=== PATIENT | male | born 1965 ===

== ENCOUNTER 2018-12-20 11:17 | Inpatient (IN) | payer BC ==
--- NOTE | 2018-12-20 11:22 | ED PDOC ---
Arrival/HPI - General Time Seen by Provider: 12/20/18 11:18 Historian: Patient, EMS - History of Present Illness Narrative History of Present Illness (Text): 12/20/18 11:23 53 year old M with pmh of hypertension and AFIB (on Eloquist) presents via EMS complaining of CVA like symptoms prior to arrival. 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 Left facial droop, left arm and left leg paralysis noted. Patient reports no history of CVA. Patient is awake,alert, and talking appropriately with obvious slurred speech. Patient wants called and told about presence in Emergency room. EMS mentions that physician on cruise administered 4mg sublingual nitro and 40mg Lasinopril. Patient currently does not have any other physical complaints, denies headache, denies chest pain, no neck pain. 12/22/18 11:40 Time/Duration: Prior to Arrival Symptom Onset: Sudden Symptom Course: Unchanged Activities at Onset: Light Past Medical History - Provider Review Nursing Documentation Reviewed: Yes Family/Social History - Physician Review Nursing Documentation Reviewed: Yes Family/Social History: Unknown Family HX Allergies/Home Meds Allergies/Adverse Reactions: Allergies No Known Allergies Allergy (Verified 12/20/18 11:26) Home Medications: Home Meds Medication Instructions Recorded Confirmed Carvedilol [Coreg] 25 mg PO DAILY 12/20/18 12/20/18 Insulin Glargine,Hum.rec.anlog 25 units SC CONT 12/20/18 12/20/18 [Lantus Solostar] hydrALAZINE [Apresoline] 10 mg PO BID 12/20/18 12/20/18 Review of Systems - Physician Review All systems were reviewed & negative as marked: Yes - Review of Systems Constitutional: absent: Fevers ENT: absent: Sore Throat, Rhinorrhea, Epistaxis Respiratory: absent: SOB, Cough Gastrointestinal: absent: Abdominal Pain, Diarrhea, Nausea, Vomiting Neurological: Facial Droop (left). absent: Headache, Dizziness Physical Exam - Physical Exam Narrative Physical Exam (Text): 12/20/18 11:19 Gen: VS reviewed, alert, well developed, well nourished, nontoxic, mild distress. ENT: normal pharynx. Eye: EOMI, PERRL. Neck: no JVD, supple, no adenopathy. CV: regular rate, regular rhythm, no rubs, no murmur, no gallops, S1, S2, pulses equal and strong. Pulm: no distress, clear to auscultation, no wheeze, no rhonchi, breath sounds equal, no rales. Abd: soft, nontender, no guarding, no rebound, no rigidity, normal bowel sounds. Ext: Paralysis of Left arm and left leg Skin: good color, no rash, no cyanosis. Psych: responds appropriately to questions, normal affect. Neuro: oriented x 3, Left sided facial droop Medical Decision Making ED Course and Treatment: 12/20/18 11:20 Code stroke called Impression: 53 year old M presents via EMS complaining of CVA like symptoms prior to arrival Plan: -- Apresoline -- CT Head w/o contrast -- Labs -- EKG -- Stroke team consult -- Reassess and disposition Prior Visits: Notes and results from previous visits were reviewed. Progress Notes: 12/20/18 11:37 Awaiting call back from neurosurgery 12/20/18 11:[address] Barajas, neurosurgery, states patient is not acute candidate for neurosurgical intervention 12/20/18 11:[address] Thomas who accepts admission, and consults to Dr. Fowler (Neuro), Dr. Garner(hematology), Dr. Edwards (cardio) 12/20/18 11:57 Dr. Tubbs, neurology, presents to the emergency department for bedside evaluation patient was seen for acute left sided hemiparesis, found to have a intrcerebral bleeding, taking eliquis for chronic afib, blood pressure was severealy elevated and was given antihypertensives, anticogulation was reversed with kcentra which was confirmed by pharmacy that this was the only agent available for this acute life threatening bleed. patient was admitted to the icu. - Critical Care Critical Care Minutes: 60 minutes - RAD Interpretation Narrative RAD Interpretations (Text): 12/20/18 11:30 Chest X-ray -- No active pulmonary disease CT HEAD WITHOUT CONTRAST 1. 3.4 x 2.4 cm acute hematoma with mild surrounding vasogenic edema in the right basal ganglia. No evidence for mass effect, midline shift or herniation. The location of the acute hematoma is most compatible with a hypertensive hemorrhage. 2. 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 - EKG Interpretation EKG Interpretation (Text): 12/20/18 12:47 ekg my read: atrial fibrillation at 78 bpm, rbbb, lvh Interpreted by ED Physician: Yes - Scribe Statement The provider has reviewed the documentation as recorded by the Elizabethibkaden Wilson All medical record entries made by the Scribe were at my direction and personally dictated by me. I have reviewed the chart and agree that the record accurately reflects my personal performance of the history, physical exam, medical decision making, and the department course for this patient. I have also personally directed, reviewed, and agree with the discharge instructions and disposition. Disposition/Present on Arrival - Present on Arrival Any Indicators Present on Arrival: No - Disposition Have Diagnosis and Disposition been Completed?: Yes Diagnosis: Intracerebral bleed Disposition: HOSPITALIZED Disposition Time: 11:43 Patient Plan: Admission, ICU Patient Problems: Current Active Problems Problem Status Onset Intracerebral bleed Acute Condition: CRITICAL
[2018-12-20] MEDS ORDERED: HUM PROTHROMBIN CPLX IV ONE (11:33)
[2018-12-20] MEDS ORDERED: [UNRECOGNIZED DRUG - OTHER] IV ONE (11:33)
[2018-12-20] MEDS ORDERED: PREMIXED IV ONE (11:33)
--- NOTE | 2018-12-20 11:35 | CT ---
Date of service: 12/20/2018 PROCEDURE: CT HEAD WITHOUT CONTRAST. HISTORY: L arm weakness COMPARISON: None TECHNIQUE: Axial computed tomography images were obtained through the head/brain without intravenous contrast. Radiation dose: Total exam DLP = 956.37 mGy-cm. This CT exam was performed using one or more of the following dose reduction techniques: Automated exposure control, adjustment of the mA and/or kV according to patient size, and/or use of iterative reconstruction technique. FINDINGS: HEMORRHAGE: There is a 3.4 x 2.0 cm acute hematoma in the right basal ganglia. There is mild surrounding vasogenic edema without evidence for mass effect, midline shift or herniation. BRAIN: There is cystic encephalomalacia in the right posterior superior basal ganglia. There are mild chronic microangiopathic changes. There is no mass, mass effect or abnormal extra-axial fluid collection. The midline sagittal structures are normal. VENTRICLES: The ventricles are normal in size, shape and configuration. CALVARIUM: There is no calvarial fracture or extracranial soft tissue swelling. PARANASAL SINUSES: Predominantly clear. MASTOID AIR CELLS: Predominantly clear. OTHER FINDINGS: None. IMPRESSION: 1. 3.4 x 2.4 cm acute hematoma with mild surrounding vasogenic edema in the right basal ganglia. No evidence for mass effect, midline shift or herniation. The location of the acute hematoma is most compatible with a hypertensive hemorrhage. 2. 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 Critical findings were discussed with Dr. Barr in the ER on 12/20/2018 at 11:30 a.m.
[2018-12-20] MEDS: Sodium Chloride 0.9% 1,000 ML IV SCH (11:39)
[2018-12-20 11:48] LABS: ALB/GLOB RATIO 0.9 (1.1-1.8); ALBUMIN 3.2 g/dL (3.0-4.8); CALCIUM 8.7 mg/dL (8.4-10.5)
--- NOTE | 2018-12-20 11:52 | RAD ---
Date of service: 12/20/2018 HISTORY: Code Stroke COMPARISON: No prior. FINDINGS: LUNGS: The lungs are well inflated and clear. PLEURA: No pleural effusions or pneumothorax. CARDIOVASCULAR: There is severe cardiomegaly. No aortic atherosclerotic calcifications present. OSSEOUS STRUCTURES: Within normal limits for the patient's age. VISUALIZED UPPER ABDOMEN: Normal. OTHER FINDINGS: None. IMPRESSION: No active pulmonary disease.
[2018-12-20 11:58] LABS: TROPONIN I 0.03 ng/mL
[2018-12-20 12:01] LABS: BASO # 0.02 K/mm3 (0.0-2.0); BASO % 0.2 % (0.0-3.0); EOS # 0.5 (0.0-0.7); EOS % 5.9 % (1.5-5.0); HEMOGLOBIN 11.2 g/dL (14.0-18.0); LYMPH # 1.2 (1.2-3.4); LYMPH % 14.6 % (22.0-35.0); MEAN CELL VOLUME 85.5 fl (80.0-105.0); MEAN CORPUSCULAR HEMOGLOBIN 27.5 pg (25.0-35.0); MEAN CORPUSCULAR HGB CONC 32.1 g/dl (31.0-37.0); MEAN PLATELET VOLUME 10.8 fl (7.0-11.0); MONO # 0.5 (0.1-0.6); MONO % 5.6 % (1.0-6.0); RBC 4.08 10^6/uL (3.5-6.1); RED CELL DISTRIBUTION WIDTH 15.7 % (11.5-14.5); WHITE BLOOD COUNT 8.1 10^3/uL (4.5-11.0)
[2018-12-20 12:06] VITALS: BMI 35.2
[2018-12-20 12:06] LABS: INR 1.12; PROTHROMBIN TIME 12.6 SECONDS (9.4-12.5)
--- NOTE | 2018-12-20 12:30 | CP.PCM.PN ---
Subjective - Date & Time of Evaluation Date of Evaluation: 12/20/18 Time of Evaluation: 12:28 - Subjective Subjective: Pt has right basal ganglion hemorrhage with minimal mass effect Pt on Elequest This is not surgical case, as no surgery is indicated for this problem, Suggest reversal of Elequest if possible, and further management as per neurology Objective - Vital Signs/Intake and Output Vital Signs (last 24 hours): Temp Pulse Resp BP Pulse Ox 97.6 F 89 17 182/91 H 99 12/20/18 12:16 12/20/18 12:16 12/20/18 12:16 12/20/18 12:16 12/20/18 12:16 - Medications Medications: Current Medications Hydralazine HCl (Apresoline) 10 mg IVP STAT KHAI Last Admin: 12/20/18 11:53 Dose: 10 mg Hydralazine HCl (Apresoline) 10 mg IVP STAT KHAI Last Admin: 12/20/18 12:16 Dose: 10 mg Hydralazine HCl (Apresoline) 10 mg IVP STAT KHAI Sodium Chloride (Sodium Chloride 0.9%) 1,000 mls @ 100 mls/hr IV .Q10H KHAI Last Admin: 12/20/18 11:39 Dose: 100 mls/hr Nicardipine HCl (Cardene Iv Premix) 20 mg in 200 mls @ 50 mls/hr IV .Q4H PRN; Protocol PRN Reason: TITRATE PER MD ORDER - Labs Labs: 12/20/18 11:00 12/20/18 11:00 PT 12.6 SECONDS (9.4-12.5) H 12/20/18 11:00 INR 1.12 12/20/18 11:00 APTT 34.0 Seconds (26.9-38.3) 12/20/18 11:00
[2018-12-20] MEDS: Nicardipine 20 MG/200 ML 20 MG/200 ML BAG IV PRN ×3 (12:33→20:28)
[2018-12-20] MEDS: Insulin Reg-MEDIUM-Coverage SC SCH ×3 (13:33→20:31)
--- NOTE | 2018-12-20 14:05 | RAD ---
PROCEDURE: Left Hip X-ray Radiographs. HISTORY: Fall, left hip pain COMPARISON: None. TECHNIQUE: 2 views obtained. FINDINGS: BONES: The pelvic ring is intact. There is no acute displaced fracture bone destruction. Bone alignment is normal. JOINTS: Normal. SOFT TISSUES: Normal. OTHER FINDINGS: None. IMPRESSION: No acute displaced fracture or dislocation. Please note occult fractures cannot be excluded on plain radiographs. If there is a persistent clinical concern, an MRI of the hip may be performed for further evaluation.
--- NOTE | 2018-12-20 19:50 | CP.PCM.CON ---
History of Present Illness - History of Present Illness History of Present Illness: 3 year old man with pmh of hypertension and AFIB (on Eloquis) presents via EMS complaining of CVA like symptoms prior to arrival. 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 Left facial droop, left arm and left leg paralysis was noted, along with slurring of speech. A CAT scan done, revealed a 3.4 cm hematoma in the right basal ganglia, along with some edema. The patient's last dose of Eliquis was last night, in the ER, he was transfused Prothrombin complex concentrates( andaxenet not immediately available) As per the family, the patient fell down, because of the new onset weakness, on his left side as per the patient's family. He had an episode of vomiting in the ER. The patient is awake, communicating, still with weakness of his left lower extremity, c/o slight headache. Patient reports no history of CVA. Patient is awake and talking. Patient wants called and told about presence in Emergency room. EMS mentions that physician on cruise administered 4mg sublingual nitro and 40mg Lacenopro. Patient currently does not have any further complaints. The patient gives a history of ?PVD, toe amputation with history of gangrene. The patient does not remember taking any Aspirin, takes it on and off as per patient Past Patient History - Past Social History Smoking Status: Never Smoked - CARDIAC Hx Cardia Arrhythmia: Yes Hx Hypertension: Yes - ENDOCRINE/METABOLIC Hx Diabetes Mellitus Type 2: Yes - MUSCULOSKELETAL/RHEUMATOLOGICAL Hx Falls: No - PSYCHIATRIC Hx Substance Use: No Meds Allergies/Adverse Reactions: Allergies Allergy/AdvReac Type Severity Reaction Status Date / Time No Known Allergies Allergy Verified 12/20/18 11:26 - Medications Medications: Current Medications Furosemide (Lasix) 40 mg IVP DAILY [facility] Last Admin: 12/20/18 18:53 Dose: 40 mg Hydralazine HCl (Apresoline) 10 mg IVP STAT [facility] Last Admin: 12/20/18 11:53 Dose: 10 mg Hydralazine HCl (Apresoline) 10 mg IVP STAT [facility] Last Admin: 12/20/18 12:30 Dose: 10 mg Hydralazine HCl (Apresoline) 10 mg IVP STAT [facility] Last Admin: 12/20/18 12:40 Dose: 10 mg Sodium Chloride (Sodium Chloride 0.9%) 1,000 mls @ 100 mls/hr IV .Q10H KHAI Last Admin: 12/20/18 11:39 Dose: 100 mls/hr Nicardipine HCl (Cardene Iv Premix) 20 mg in 200 mls @ 50 mls/hr IV .Q4H PRN; Protocol PRN Reason: TITRATE PER MD ORDER Last Admin: 12/20/18 16:40 Dose: 5 mg/hr, 50 mls/hr Acetaminophen (Ofirmev) 1,000 mg in 100 mls @ 400 mls/hr IVPB Q6H PRN PRN Reason: fever >99 Stop: 12/22/18 12:35 Last Admin: 12/20/18 13:22 Dose: 400 mls/hr Insulin Human Regular (Humulin R Med) 0 units SC Q4H KHAI; Protocol Last Admin: 12/20/18 16:32 Dose: Not Given Results - Vital Signs Recent Vital Signs: Last Vital Signs Temp 98 F 12/20/18 14:45 Pulse 73 12/20/18 18:10 Resp 16 12/20/18 18:10 BP 153/88 H 12/20/18 18:53 Pulse Ox 99 12/20/18 18:10 - Labs Result Diagrams: 12/20/18 11:00 12/20/18 11:00 Labs: Laboratory Results - last 24 hr 12/20/18 12/20/18 12/20/18 11:00 11:00 11:00 WBC 8.1 RBC 4.08 Hgb 11.2 L Hct 34.9 L MCV 85.5 MCH 27.5 MCHC 32.1 RDW 15.7 H Plt Count 291 MPV 10.8 Neut % (Auto) 73.7 H Lymph % (Auto) 14.6 L Lynn % (Auto) 5.6 Eos % (Auto) 5.9 H Baso % (Auto) 0.2 Lymph # (Auto) 1.2 Lynn # (Auto) 0.5 Eos # (Auto) 0.5 Baso # (Auto) 0.02 Absolute Neuts (auto) 5.95 PT 12.6 H INR 1.12 APTT 34.0 Sodium 141 Potassium 5.2 H Chloride 113 H Carbon Dioxide 21 Anion Gap 12 BUN 48 H Creatinine 3.1 H Est GFR ( Amer) 26 Est GFR (Non-Af Amer) 21 POC Glucose (mg/dL) Random Glucose 141 H Hemoglobin A1c Calcium 8.7 Total Bilirubin 0.3 AST 23 ALT 16 Alkaline Phosphatase 103 Troponin I 0.03 Total Protein 6.6 Albumin 3.2 Globulin 3.4 Albumin/Globulin Ratio 0.9 L Triglycerides 86 Cholesterol 161 LDL Cholesterol Direct 110 HDL Cholesterol 35 Blood Type Blood Type Confirm Antibody Screen BBK History Checked 12/20/18 12/20/18 12/20/18 11:00 11:30 11:50 WBC RBC Hgb Hct MCV MCH MCHC RDW Plt Count MPV Neut % (Auto) Lymph % (Auto) Lynn % (Auto) Eos % (Auto) Baso % (Auto) Lymph # (Auto) Lynn # (Auto) Eos # (Auto) Baso # (Auto) Absolute Neuts (auto) PT INR APTT Sodium Potassium Chloride Carbon Dioxide Anion Gap BUN Creatinine Est GFR ( Amer) Est GFR (Non-Af Amer) POC Glucose (mg/dL) Random Glucose Hemoglobin A1c 6.3 Calcium Total Bilirubin AST ALT Alkaline Phosphatase Troponin I Total Protein Albumin Globulin Albumin/Globulin Ratio Triglycerides Cholesterol LDL Cholesterol Direct HDL Cholesterol Blood Type O POSITIVE Blood Type Confirm O POSITIVE Antibody Screen Negative BBK History Checked No verified bt 12/20/18 16:17 WBC RBC Hgb Hct MCV MCH MCHC RDW Plt Count MPV Neut % (Auto) Lymph % (Auto) Lynn % (Auto) Eos % (Auto) Baso % (Auto) Lymph # (Auto) Lynn # (Auto) Eos # (Auto) Baso # (Auto) Absolute Neuts (auto) PT INR APTT Sodium Potassium Chloride Carbon Dioxide Anion Gap BUN Creatinine Est GFR ( Amer) Est GFR (Non-Af Amer) POC Glucose (mg/dL) 187 H Random Glucose Hemoglobin A1c Calcium Total Bilirubin AST ALT Alkaline Phosphatase Troponin I Total Protein Albumin Globulin Albumin/Globulin Ratio Triglycerides Cholesterol LDL Cholesterol Direct HDL Cholesterol Blood Type Blood Type Confirm Antibody Screen BBK History Checked Assessment & Plan - Assessment and Plan (Free Text) Assessment: 53 yo man with new onset left sided weakness, secondary to basal ganglia hematoma, while on PO Eliquis, last dose yesterday evening. The patient is currently s/p PCCs, with improvement of his speech and upper extremity weakness. Plan- Will check coags and fibrinogen level in AM. ? repeat CAT scan in AM, await neuro input. Will repeat CBC as well, with anemia work up.
--- NOTE | 2018-12-20 23:01 | CON ---
DATE: 12/20/2018 HISTORY OF PRESENT ILLNESS: The patient is a 53-year-old gentleman with history of hypertension and atrial fibrillation, on Eliquis, who presented to [facility] today with sudden onset of left upper and lower extremity weakness. 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 He also had left facial droop. No prior history of CVA reported. The patient is awake, alert, talks in full sentences, oriented x3, protecting airways. No problems swallowing or coughing. No nausea, no vomiting, no diarrhea, no constipation. PAST MEDICAL HISTORY: Hypertension and atrial fibrillation, on Eliquis. Diabetes mellitus. FAMILY HISTORY: Noncontributory. ALLERGIES: NKDA. MEDICATIONS: Coreg, insulin, and hydralazine. SOCIAL HISTORY: No alcohol or illicit drug abuse. No tobacco smoking. REVIEW OF SYSTEMS: Review of 12-organ systems other than mentioned in history of present illness is negative. PHYSICAL EXAMINATION: VITAL SIGNS: Blood pressure 162/91 (Cardene drip is started), temperature 97.6, heart rate 89, respiratory rate 17, oxygen saturation 99% on room air. ENT: Head and neck atraumatic. There is flattening of the left nasolabial fold. LUNGS: Clear to auscultation bilaterally. HEART: Regular rate and rhythm. S1 and S2 normal. ABDOMEN: Soft, nontender, nondistended. MUSCULOSKELETAL: No C/C/E. NEUROLOGIC: There is a significant weakness in the left upper and lower extremities compared with the right upper and lower extremities (2/5). The patient has flattening of the left nasolabial fold; however, able to shrug his shoulders, raising his eyebrows, and sticking out his tongue without asymmetry or difficulty. SKIN: Moist. PSYCHIATRIC: The patient is alert, awake, and oriented x3, protecting airways. Good cough and gag reflex. LABORATORY DATA: WBC 8.1, hemoglobin 11.2, platelet count 291. Sodium 141, potassium 5.2, chloride 113, carbon dioxide 21, BUN 48, creatinine 3.1. AST 23, ALT 16, total bilirubin 0.3. INR 1.12, PTT is 34, PT 12.6. The patient received several doses of hydralazine and will be started on Cardene drip shortly. aPCC is on its way as well to reverse effect of Eliquis. Head CT showed a 3.4 x 2.4 cm acute hematoma with mild surrounding vasogenic edema in the right basal ganglia. No evidence for mass affect, midline shift, or herniation. The location of the acute hematoma is most compatible with hypertensive hemorrhage. Cystic encephalomalacia in the right posterior superior cerebellum, sequela from old superior cerebellar artery territory insult. Chest x-ray showed no active pulmonary disease. ASSESSMENT AND PLAN: This is a 53-year-old gentleman who presented with acute intracranial hemorrhage with subsequent left upper and lower extremity neurological deficit. The patient is protecting his airways, alert, awake and oriented, able to swallow and able to cough. Dr. Barajas from Neurosurgical Service was contacted - there is no need for any neurosurgical intervention. Neurologist, Dr. Aubrey Fowler was consulted as well. At present time, we will proceed with ICU admission with monitoring airway breathing and circulation. The patient will be started on Cardene drip to maintain blood pressure between 140 and 160. aPCC will be given to correct coagulopathy related to Eliquis. We will maintain euvolemia, euglycemia, normothermia, and oxygen saturation more than 90%. Accu-Chek will be every 4 hours. The patient will be on insulin sliding scale medium protocol. N.p.o., oral hygiene. Swallow evaluation. Mechanical deep venous thrombosis prophylaxis. Gastrointestinal prophylaxis. ccm time 40 min Daron Heard MD GUERLINE
[2018-12-21] MEDS: Nicardipine 20 MG/200 ML 20 MG/200 ML BAG IV PRN (00:30)
[2018-12-21] MEDS: Insulin Reg-MEDIUM-Coverage SC SCH ×6 (00:45→21:38)
--- NOTE | 2018-12-21 01:32 | HP ---
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 He started to have CVA symptoms with left facial droop, left arm and left leg paralysis. No history of CVA in the past. We gave him 4 mg of sublingual nitroglycerin and 40 mg of lisinopril in the [place]. He is a 53-year-old man with hypertension, atrial fibrillation on Eliquis, presents with 3-day-old CVA symptoms. ALLERGIES: NO KNOWN DRUG ALLERGIES. MEDICATIONS: On Coreg, insulin, and Apresoline. PAST MEDICAL HISTORY: He has got hypertension and diabetes history. He has CVA symptoms. SOCIAL HISTORY: I cannot get social history from him now in his mental capacity in the ER at [facility], he is in and out of it mentally. REVIEW OF SYSTEMS: Difficult to get it. No fevers, no sore throat, no bloody nose. No shortness of breath or cough. No abdominal pain, nausea, vomiting, constipation, or diarrhea. No chest pain. There is a left facial droop. There is left arm weakness, left hand weakness, left-sided weakness. He is kind of writhing in the bed. PHYSICAL EXAMINATION GENERAL: He is well-developed, well-nourished. He is definitely under stress in the gurney in the hospital [facility], very upset, uncomfortable, difficult to talk. VITAL SIGNS: Temperature of 98, pulse of 85, 137/86 blood pressure, 19 respiratory rate and 98% O2 sat on room air. HEENT: No vision issues at this time that I could tell. Extraocular muscles intact. Throat is moist. NECK: No JVD in the neck, no adenopathy. HEART: Regular rate. Normal S1 and S2. LUNGS: Decreased breath sounds, but clear to auscultation bilaterally. No wheezes, no rhonchi or rales. ABDOMEN: Soft, nontender. Positive bowel sounds. No guarding, no rebound, no CVA tenderness. EXTREMITIES: He has got paralysis of the left arm and left leg, the left hand. He is definitely with a CVA like symptoms. DIAGNOSTICS: He had a CT scan of the head, which showed a 3.4 x 2.4 cm acute hematoma with mild surrounding vasogenic edema in the right basal ganglia. No evidence of mass effect at this time, or midline shift or herniation. The hematoma has been the most compatible with a hypertensive hemorrhage. He has cystic encephalomalacia in the right posterior superior cerebellum, a cerebellar artery territory insult. LABORATORY DATA: He has a 8.1 white count, 11.2 hemoglobin, 34.9 hematocrit with 291 platelets. A 1.12 INR. A 141 sodium, potassium of 5.2 with BUN of 48, creatinine of 3.1. GFR is 20, blood sugar is 141, calcium is 8.7, total bilirubin is 0.3, AST is 23, ALT is 16, alkaline phosphatase 103. Troponin I is 0.03, total protein is 6.6, albumin is 3.2, triglycerides are 86, cholesterol is 161, LDL is 110. ASSESSMENT AND PLAN: Neurosurgery to call back and say no surgery at this time. He is to go into the Intensive Care Unit. I discussed it with the maintenance person. He will be on Codeine IV, Apresoline, insulin coverage, IV fluids. He will be on IV fluids. He is definitely having an acute kidney injury. I will call on renal. He will have consults with Hematology, Oncology, Neurology, Neurosurgery, Cardiology and I will call in renal due to his elevated BUN and creatinine. Hopefully he will improve. Josue Clark is in critical condition in the Intensive Care Unit. Viktor Thomas DO
--- NOTE | 2018-12-21 03:56 | CP.PCM.PN ---
Subjective - Date & Time of Evaluation Date of Evaluation: 12/21/18 Time of Evaluation: 03:55 - Subjective Subjective: S:residential service technician had asked to cosign the order for BiPAP/CPAP. As per nurse, patient had requested CPAP because he is on 8 at home. He has no acute symptoms. Denies shortness of breath, chest pain. Pertinent medical record was reviewed. O:Vital signs stable. Obese person. Not in acute distress. Lungs: Normal breathing pattern. A:Obstructive sleep apnea. Obesity. P:CPAP as ordered. Objective - Vital Signs/Intake and Output Vital Signs (last 24 hours): Temp Pulse Resp BP Pulse Ox 98 F 68 20 142/82 98 12/20/18 14:45 12/20/18 21:20 12/20/18 21:20 12/20/18 21:00 12/20/18 21:20 Intake and Output: 12/20/18 12/21/18 18:59 06:59 Intake Total 650 450 Output Total 0 Balance 650 450 - Medications Medications: Current Medications Furosemide (Lasix) 40 mg IVP DAILY [facility] Last Admin: 12/20/18 18:53 Dose: 40 mg Hydralazine HCl (Apresoline) 10 mg IVP STAT [facility] Last Admin: 12/20/18 11:53 Dose: 10 mg Hydralazine HCl (Apresoline) 10 mg IVP STAT [facility] Last Admin: 12/20/18 12:30 Dose: 10 mg Hydralazine HCl (Apresoline) 10 mg IVP STAT [facility] Last Admin: 12/20/18 12:40 Dose: 10 mg Sodium Chloride (Sodium Chloride 0.9%) 1,000 mls @ 100 mls/hr IV .Q10H [facility] Last Admin: 12/21/18 00:00 Dose: 100 mls/hr Nicardipine HCl (Cardene Iv Premix) 20 mg in 200 mls @ 50 mls/hr IV .Q4H PRN; Protocol PRN Reason: TITRATE PER MD ORDER Last Titration: 12/21/18 02:00 Dose: 0 mg/hr, 0 mls/hr Acetaminophen (Ofirmev) 1,000 mg in 100 mls @ 400 mls/hr IVPB Q6H PRN PRN Reason: fever >99 Stop: 12/22/18 12:35 Last Admin: 12/20/18 13:22 Dose: 400 mls/hr Insulin Human Regular (Humulin R Med) 0 units SC Q4H [facility]; Protocol Last Admin: 12/21/18 00:45 Dose: Not Given - Labs Labs: 12/20/18 11:00 12/20/18 11:00 PT 12.6 SECONDS (9.4-12.5) H 12/20/18 11:00 INR 1.12 12/20/18 11:00 APTT 34.0 Seconds (26.9-38.3) 12/20/18 11:00
--- NOTE | 2018-12-21 04:47 | CON ---
DATE: 12/20/2018 CARDIOLOGY CONSULTATION REASON FOR CONSULTATION: Chronic atrial fibrillation and cerebral hemorrhage. HISTORY OF PRESENT ILLNESS: History was obtained from the patient's at the bedside. The patient is a 53-year-old male who has a history of hypertension, type 2 diabetes mellitus, chronic atrial fibrillation, history of chronic stenting between 1 and 2 years ago at [facility] according to the . 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 According to the , the patient has no prior history of stroke, and until this morning, when he went to work, he was in his usual state of health. The patient is able to communicate with his , but he is in a lethargic condition. In the ER, a head CT scan was performed and it revealed a 3.4 x 2.4 cm acute hematoma with mild surrounding vasogenic edema in the right basal ganglia. No evidence of mass effect, midline shift, or herniation. The location of the acute hemorrhage is most compatible with hypertensive hemorrhage. 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 The patient was hypertensive on presentation and the initial blood pressure in ER was 190/118. The patient received prothrombin complex concentrate, a total of 4608 units, and was also started on Cardene drip and received intravenous hydralazine 10 mg multiple doses. The patient denied any chest pain either before or after the event. SOCIAL HISTORY: The patient is , lives with his . He works as a security operations analyst. He lives in [place] and beside his full-time job, he does weekend job in [place]. REVIEW OF SYSTEMS: No reported chest pain. No reported ventricular tachycardia. No reported hypotension so far. CURRENT MEDICATIONS: Cardene drip, normal saline 100 mL an hour, and the patient did receive earlier prothrombin complex concentrate. HOME MEDICATIONS: Include Coreg, hydralazine, Lantus insulin, and Eliquis. PHYSICAL EXAMINATION GENERAL: The patient is a middle-aged male, who is currently lethargic, but does not appear to be in acute distress. VITAL SIGNS: Most recent blood pressure is 182/91, heart rate 89, temperature 98, and respiration 18. HEENT: Loss of left nasolabial fold. CHEST: Clear heart sounds. S1, S2 regular. ABDOMEN: Soft. EXTREMITIES: 1+ pitting edema. LABORATORY DATA: Hemoglobin and hematocrit 11.2 and 34.9, white count and platelet count are within normal limits. SMA-7; sodium 141, potassium 5.2, chloride 115, CO2 of 21, glucose 141, BUN 48, and creatinine 3.1. Lipid profile is within normal limits. INR is 1.12 and PTT is 34. Hip and pelvis x-ray; no acute displaced fracture or dislocation. Chest x-ray; cardiomegaly and prominent bronchovascular markings. EKG could not be found on the [employer]. The patient is in atrial fibrillation, on a monitor with controlled ventricular response. Official head CT scan report; 3.4 x 2.4 cm acute hematoma with mild surrounding vasogenic edema and right basal ganglia. No evidence of mass effect or midline shift. 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 ASSESSMENT: 1. Hypertensive right basal ganglia bleed, currently with surrounding vasogenic edema. No evidence of mass effect or midline shift or herniation. 2. Uncontrolled hypertension. 3. Coronary artery disease with history of coronary artery stenting between 1 and 2 years ago at [facility]. 4. Renal insufficiency, most likely a chronic one. 5. Uncontrolled diabetes mellitus. RECOMMENDATIONS: Continue current ICU monitoring. Continue current Cardene drip. Start Lasix at 40 mg intravenously daily. Obtain a bedside echocardiographic study. We will obtain a coronary stent report from the patient's websphere commerce developer, Dr. Cabello at [phone]. Mark Carter MD
[2018-12-21 06:32] LABS: PROTHROMBIN TIME 12.2 SECONDS (9.4-12.5)
[2018-12-21 06:33] LABS: INR 1.08 (0.93-1.08); PARTIAL THROMBOPLASTIN TIME 34.2 Seconds (26.9-38.3)
[2018-12-21 06:40] LABS: BASO # 0.01 K/mm3 (0.0-2.0); BASO % 0.1 % (0.0-3.0); EOS # 0.3 (0.0-0.7); EOS % 4.1 % (1.5-5.0); HEMOGLOBIN 10.4 g/dL (14.0-18.0); LYMPH # 1.1 (1.2-3.4); LYMPH % 15.1 % (22.0-35.0); MEAN CELL VOLUME 85.9 fl (80.0-105.0); MEAN CORPUSCULAR HEMOGLOBIN 27.7 pg (25.0-35.0); MEAN CORPUSCULAR HGB CONC 32.3 g/dl (31.0-37.0); MONO # 0.5 (0.1-0.6); MONO % 6.6 % (1.0-6.0); RBC 3.75 10^6/uL (3.5-6.1); RED CELL DISTRIBUTION WIDTH 15.9 % (11.5-14.5); WHITE BLOOD COUNT 7.2 10^3/uL (4.5-11.0)
--- NOTE | 2018-12-21 07:41 | CP.PCM.CON ---
History of Present Illness - History of Present Illness History of Present Illness: Neurology consult dictated. MR. Clark is a 53 yr old male with right basal ganglia hemorrhage secondary to hypertension and possible eloquiss use. He now has left sided plegia. He came in as a code stroke but is not a candidate due to the hemorrhage. PLan; 1. Maintain normotensive BP 2. No anticoagulants. 3. Admit to ICU 4. Physical therapy. 5. Hold eloquiss THank you Dr. Tubbs Neurology Past Patient History - Past Social History Smoking Status: Never Smoked - CARDIAC Hx Cardia Arrhythmia: Yes Hx Hypertension: Yes - ENDOCRINE/METABOLIC Hx Diabetes Mellitus Type 2: Yes - MUSCULOSKELETAL/RHEUMATOLOGICAL Hx Falls: No - PSYCHIATRIC Hx Substance Use: No Meds Allergies/Adverse Reactions: Allergies Allergy/AdvReac Type Severity Reaction Status Date / Time No Known Allergies Allergy Verified 12/20/18 11:26 - Medications Medications: Current Medications Furosemide (Lasix) 40 mg IVP DAILY [facility] Last Admin: 12/20/18 18:53 Dose: 40 mg Hydralazine HCl (Apresoline) 10 mg IVP STAT [facility] Last Admin: 12/20/18 11:53 Dose: 10 mg Hydralazine HCl (Apresoline) 10 mg IVP STAT [facility] Last Admin: 12/20/18 12:30 Dose: 10 mg Hydralazine HCl (Apresoline) 10 mg IVP STAT [facility] Last Admin: 12/20/18 12:40 Dose: 10 mg Sodium Chloride (Sodium Chloride 0.9%) 1,000 mls @ 100 mls/hr IV .Q10H [facility] Last Admin: 12/21/18 00:00 Dose: 100 mls/hr Nicardipine HCl (Cardene Iv Premix) 20 mg in 200 mls @ 50 mls/hr IV .Q4H PRN; Protocol PRN Reason: TITRATE PER MD ORDER Last Titration: 12/21/18 02:00 Dose: 0 mg/hr, 0 mls/hr Acetaminophen (Ofirmev) 1,000 mg in 100 mls @ 400 mls/hr IVPB Q6H PRN PRN Reason: fever >99 Stop: 12/22/18 12:35 Last Admin: 12/20/18 13:22 Dose: 400 mls/hr Insulin Human Regular (Humulin R Med) 0 units SC Q4H [facility]; Protocol Last Admin: 12/21/18 04:45 Dose: Not Given Results - Vital Signs Recent Vital Signs: Last Vital Signs Temp 97.7 F 12/21/18 00:00 Pulse 55 L 12/21/18 06:50 Resp 20 12/21/18 06:50 BP 136/65 12/21/18 06:00 Pulse Ox 100 12/21/18 06:50 - Labs Result Diagrams: 12/21/18 06:00 12/20/18 11:00 Labs: Laboratory Results - last 24 hr 12/20/18 12/20/18 12/20/18 11:00 11:00 11:00 WBC 8.1 RBC 4.08 Hgb 11.2 L Hct 34.9 L MCV 85.5 MCH 27.5 MCHC 32.1 RDW 15.7 H Plt Count 291 MPV 10.8 Neut % (Auto) 73.7 H Lymph % (Auto) 14.6 L [place] % (Auto) 5.6 Eos % (Auto) 5.9 H Baso % (Auto) 0.2 Lymph # (Auto) 1.2 [place] # (Auto) 0.5 Eos # (Auto) 0.5 Baso # (Auto) 0.02 Absolute Neuts (auto) 5.95 PT 12.6 H INR 1.12 APTT 34.0 Fibrinogen Sodium 141 Potassium 5.2 H Chloride 113 H Carbon Dioxide 21 Anion Gap 12 BUN 48 H Creatinine 3.1 H Est GFR ( Amer) 26 Est GFR (Non-Af Amer) 21 POC Glucose (mg/dL) Random Glucose 141 H Hemoglobin A1c Calcium 8.7 Total Bilirubin 0.3 AST 23 ALT 16 Alkaline Phosphatase 103 Troponin I 0.03 Total Protein 6.6 Albumin 3.2 Globulin 3.4 Albumin/Globulin Ratio 0.9 L Triglycerides 86 Cholesterol 161 LDL Cholesterol Direct 110 HDL Cholesterol 35 Blood Type Blood Type Confirm Antibody Screen BBK History Checked 12/20/18 12/20/18 12/20/18 11:00 11:30 11:50 WBC RBC Hgb Hct MCV MCH MCHC RDW Plt Count MPV Neut % (Auto) Lymph % (Auto) [place] % (Auto) Eos % (Auto) Baso % (Auto) Lymph # (Auto) [place] # (Auto) Eos # (Auto) Baso # (Auto) Absolute Neuts (auto) PT INR APTT Fibrinogen Sodium Potassium Chloride Carbon Dioxide Anion Gap BUN Creatinine Est GFR ( Amer) Est GFR (Non-Af Amer) POC Glucose (mg/dL) Random Glucose Hemoglobin A1c 6.3 Calcium Total Bilirubin AST ALT Alkaline Phosphatase Troponin I Total Protein Albumin Globulin Albumin/Globulin Ratio Triglycerides Cholesterol LDL Cholesterol Direct HDL Cholesterol Blood Type O POSITIVE Blood Type Confirm O POSITIVE Antibody Screen Negative BBK History Checked No verified bt 12/20/18 12/20/18 12/20/18 16:17 20:45 23:12 WBC RBC Hgb Hct MCV MCH MCHC RDW Plt Count MPV Neut % (Auto) Lymph % (Auto) [place] % (Auto) Eos % (Auto) Baso % (Auto) Lymph # (Auto) [place] # (Auto) Eos # (Auto) Baso # (Auto) Absolute Neuts (auto) PT INR APTT Fibrinogen Sodium Potassium Chloride Carbon Dioxide Anion Gap BUN Creatinine Est GFR ( Amer) Est GFR (Non-Af Amer) POC Glucose (mg/dL) 187 H 117 H 105 Random Glucose Hemoglobin A1c Calcium Total Bilirubin AST ALT Alkaline Phosphatase Troponin I Total Protein Albumin Globulin Albumin/Globulin Ratio Triglycerides Cholesterol LDL Cholesterol Direct HDL Cholesterol Blood Type Blood Type Confirm Antibody Screen BBK History Checked 12/21/18 12/21/18 12/21/18 04:05 05:30 06:00 WBC 7.2 RBC 3.75 Hgb 10.4 L Hct 32.2 L MCV 85.9 MCH 27.7 MCHC 32.3 RDW 15.9 H Plt Count 254 MPV 11.0 Neut % (Auto) 74.1 H Lymph % (Auto) 15.1 L [place] % (Auto) 6.6 H Eos % (Auto) 4.1 Baso % (Auto) 0.1 Lymph # (Auto) 1.1 L [place] # (Auto) 0.5 Eos # (Auto) 0.3 Baso # (Auto) 0.01 Absolute Neuts (auto) 5.31 PT 12.2 INR 1.08 APTT 34.2 Fibrinogen 437 H Sodium Potassium Chloride Carbon Dioxide Anion Gap BUN Creatinine Est GFR ( Amer) Est GFR (Non-Af Amer) POC Glucose (mg/dL) 89 Random Glucose Hemoglobin A1c Calcium Total Bilirubin AST ALT Alkaline Phosphatase Troponin I Total Protein Albumin Globulin Albumin/Globulin Ratio Triglycerides Cholesterol LDL Cholesterol Direct HDL Cholesterol Blood Type Blood Type Confirm Antibody Screen BBK History Checked
--- NOTE | 2018-12-21 09:06 | CP.CCUPN ---
CCU Subjective - Physician Review Subjective (Free Text): All Small, PGY-1 Critical Care Progress Note Patient seen and evaluated at bedside. No acute events reported overnight. Patient currently off Nicardipine drip. Patient reports occasional L hip pain denies weakness, headaches, chest pain, shortness of breath, palpitations. CCU Objective - Vital Signs / Intake & Output Vital Signs (Last 4 hours): Vital Signs Pulse Resp BP Pulse Ox 12/21/18 08:20 77 22 98 12/21/18 08:10 74 22 98 12/21/18 08:01 71 16 155/112 H 98 12/21/18 08:00 72 11 L 99 12/21/18 07:50 71 18 99 12/21/18 07:40 74 12 99 12/21/18 07:30 75 43 H 100 12/21/18 07:20 55 L 17 100 12/21/18 07:10 66 22 100 12/21/18 07:00 55 L 19 149/90 100 12/21/18 06:50 55 L 20 100 12/21/18 06:40 65 19 100 12/21/18 06:30 56 L 20 100 12/21/18 06:20 61 19 100 12/21/18 06:10 54 L 20 100 12/21/18 06:00 57 L 20 136/65 100 12/21/18 05:50 54 L 21 100 12/21/18 05:40 57 L 19 100 12/21/18 05:30 54 L 17 100 12/21/18 05:20 68 21 100 12/21/18 05:10 60 17 100 Intake and Output (Last 8hrs): Intake & Output 12/20/18 12/21/18 12/21/18 22:59 06:59 14:59 Intake Total 850 1800 Output Total 0 900 Balance 850 900 Intake: IV 850 1800 Left Antecubital 0 Right Forearm 300 1200 cardene 150 350 Oral 0 0 Output: Urine 0 900 Urine, Voided 0 900 Other: # Voids Urine, Voided 3 # Bowel Movements 0 0 - Physical Exam Head: Positive for: Atraumatic, Normocephalic, Other (no obvious assymetry noted in nasiolabial folds or eyelids) Pupils: Positive for: PERRL Extroacular Muscles: Positive for: EOMI Conjunctiva: Positive for: Normal Mouth: Positive for: Dry Neck: Positive for: Normal Range of Motion Respiratory/Chest: Positive for: Clear to Auscultation, Good Air Exchange. Negative for: Respiratory Distress Cardiovascular: Positive for: Regular Rate and Rhythm, Normal S1, S2. Negative for: Murmurs, Tachycardic Abdomen: Positive for: Normal Bowel Sounds. Negative for: Tenderness, Rebound Back: Negative for: CVA Tenderness, Paraspinal Tenderness Upper Extremity: Positive for: NORMAL PULSES, Capillary Refill < 2s, Other (5/5 b/l extremities). Negative for: Edema, Tenderness, Swelling, Erythema Lower Extremity: Positive for: Edema (2+ at baseline), Capillary Refill < 2 s, Other (5/5 b/l extremities). Negative for: Miky's Sign, Tenderness Neurological: Positive for: GCS=15, CN II-XII Intact, Speech Normal, Motor Func Grossly Intact Skin: Positive for: Warm, Dry, Normal Color Psychiatric: Positive for: Alert, Oriented x 3, Normal Insight, Normal Concentration - Medications Active Medications: Active Medications Generic Name Dose Route Start Last Admin Trade Name Freq PRN Reason Stop Dose Admin Furosemide 40 mg 12/20/18 18:00 12/20/18 18:53 Lasix IVP 40 mg DAILY KHAI Administration Sodium Chloride 1,000 mls @ 100 mls/hr 12/20/18 11:30 12/21/18 00:00 Sodium Chloride 0.9% IV 100 mls/hr .Q10H KHAI Administration Nicardipine HCl 20 mg in 200 mls @ 50 mls/hr 12/20/18 11:36 12/21/18 02:00 Cardene Iv Premix IV 0 mg/hr .Q4H PRN 0 mls/hr TITRATE PER MD ORDER Titration Protocol 5 MG/HR Acetaminophen 1,000 mg in 100 mls @ 400 mls/hr 12/20/18 12:34 12/20/18 13:22 Ofirmev IVPB 12/22/18 12:35 400 mls/hr Q6H PRN Administration fever >99 Insulin Human Regular 0 units 12/20/18 12:45 12/21/18 07:59 Humulin R Med SC Not Given Q4H KHAI Protocol Pantoprazole Sodium 40 mg 12/21/18 10:00 Protonix Inj IVP DAILY KHAI - Patient Studies Lab Studies: Lab Studies 12/21/18 12/21/18 12/21/18 Range/Units 07:34 06:00 05:30 WBC 7.2 (4.5-11.0) 10^3/uL RBC 3.75 (3.5-6.1) 10^6/uL Hgb 10.4 L (14.0-18.0) g/dL Hct 32.2 L (42.0-52.0) % MCV 85.9 (80.0-105.0) fl MCH 27.7 (25.0-35.0) pg MCHC 32.3 (31.0-37.0) g/dl RDW 15.9 H (11.5-14.5) % Plt Count 254 (120.0-450.0) 10^3/uL MPV 11.0 (7.0-11.0) fl Neut % (Auto) 74.1 H (50.0-68.0) % Lymph % (Auto) 15.1 L (22.0-35.0) % Maries % (Auto) 6.6 H (1.0-6.0) % Eos % (Auto) 4.1 (1.5-5.0) % Baso % (Auto) 0.1 (0.0-3.0) % Lymph # (Auto) 1.1 L (1.2-3.4) Maries # (Auto) 0.5 (0.1-0.6) Eos # (Auto) 0.3 (0.0-0.7) Baso # (Auto) 0.01 (0.0-2.0) K/mm3 Absolute Neuts (auto) 5.31 (1.4-6.5) PT 12.2 (9.4-12.5) SECONDS INR 1.08 APTT 34.2 (26.9-38.3) Seconds Fibrinogen 437 H (200-400) mg/dl Sodium (132-148) mmol/L Potassium (3.6-5.0) mmol/L Chloride (98-107) mmol/L Carbon Dioxide (21-33) mmol/L Anion Gap (10-20) BUN (7-21) mg/dL Creatinine (0.8-1.5) mg/dl Est GFR ( Amer) Est GFR (Non-Af Amer) POC Glucose (mg/dL) 93 (65-110) mg/dL Random Glucose (70-110) mg/dL Hemoglobin A1c (4.2-6.5) % Calcium (8.4-10.5) mg/dL Total Bilirubin (0.2-1.3) mg/dL AST (17-59) U/L ALT (7-56) U/L Alkaline Phosphatase (38-126) U/L Troponin I ng/mL Total Protein (5.8-8.3) g/dL Albumin (3.0-4.8) g/dL Globulin gm/dL Albumin/Globulin Ratio (1.1-1.8) Triglycerides (35-160) mg/dL Cholesterol (130-200) mg/dL LDL Cholesterol Direct (0-129) mg/dL HDL Cholesterol (29-60) mg/dL Blood Type Blood Type Confirm Antibody Screen BBK History Checked 12/21/18 12/20/18 12/20/18 Range/Units 04:05 23:12 20:45 WBC (4.5-11.0) 10^3/uL RBC (3.5-6.1) 10^6/uL Hgb (14.0-18.0) g/dL Hct (42.0-52.0) % MCV (80.0-105.0) fl MCH (25.0-35.0) pg MCHC (31.0-37.0) g/dl RDW (11.5-14.5) % Plt Count (120.0-450.0) 10^3/uL MPV (7.0-11.0) fl Neut % (Auto) (50.0-68.0) % Lymph % (Auto) (22.0-35.0) % Maries % (Auto) (1.0-6.0) % Eos % (Auto) (1.5-5.0) % Baso % (Auto) (0.0-3.0) % Lymph # (Auto) (1.2-3.4) Maries # (Auto) (0.1-0.6) Eos # (Auto) (0.0-0.7) Baso # (Auto) (0.0-2.0) K/mm3 Absolute Neuts (auto) (1.4-6.5) PT (9.4-12.5) SECONDS INR APTT (26.9-38.3) Seconds Fibrinogen (200-400) mg/dl Sodium (132-148) mmol/L Potassium (3.6-5.0) mmol/L Chloride (98-107) mmol/L Carbon Dioxide (21-33) mmol/L Anion Gap (10-20) BUN (7-21) mg/dL Creatinine (0.8-1.5) mg/dl Est GFR ( Amer) Est GFR (Non-Af Amer) POC Glucose (mg/dL) 89 105 117 H (65-110) mg/dL Random Glucose (70-110) mg/dL Hemoglobin A1c (4.2-6.5) % Calcium (8.4-10.5) mg/dL Total Bilirubin (0.2-1.3) mg/dL AST (17-59) U/L ALT (7-56) U/L Alkaline Phosphatase (38-126) U/L Troponin I ng/mL Total Protein (5.8-8.3) g/dL Albumin (3.0-4.8) g/dL Globulin gm/dL Albumin/Globulin Ratio (1.1-1.8) Triglycerides (35-160) mg/dL Cholesterol (130-200) mg/dL LDL Cholesterol Direct (0-129) mg/dL HDL Cholesterol (29-60) mg/dL Blood Type Blood Type Confirm Antibody Screen BBK History Checked 12/20/18 12/20/18 12/20/18 Range/Units 16:17 11:50 11:30 WBC (4.5-11.0) 10^3/uL RBC (3.5-6.1) 10^6/uL Hgb (14.0-18.0) g/dL Hct (42.0-52.0) % MCV (80.0-105.0) fl MCH (25.0-35.0) pg MCHC (31.0-37.0) g/dl RDW (11.5-14.5) % Plt Count (120.0-450.0) 10^3/uL MPV (7.0-11.0) fl Neut % (Auto) (50.0-68.0) % Lymph % (Auto) (22.0-35.0) % Maries % (Auto) (1.0-6.0) % Eos % (Auto) (1.5-5.0) % Baso % (Auto) (0.0-3.0) % Lymph # (Auto) (1.2-3.4) Maries # (Auto) (0.1-0.6) Eos # (Auto) (0.0-0.7) Baso # (Auto) (0.0-2.0) K/mm3 Absolute Neuts (auto) (1.4-6.5) PT (9.4-12.5) SECONDS INR APTT (26.9-38.3) Seconds Fibrinogen (200-400) mg/dl Sodium (132-148) mmol/L Potassium (3.6-5.0) mmol/L Chloride (98-107) mmol/L Carbon Dioxide (21-33) mmol/L Anion Gap (10-20) BUN (7-21) mg/dL Creatinine (0.8-1.5) mg/dl Est GFR ( Amer) Est GFR (Non-Af Amer) POC Glucose (mg/dL) 187 H (65-110) mg/dL Random Glucose (70-110) mg/dL Hemoglobin A1c (4.2-6.5) % Calcium (8.4-10.5) mg/dL Total Bilirubin (0.2-1.3) mg/dL AST (17-59) U/L ALT (7-56) U/L Alkaline Phosphatase (38-126) U/L Troponin I ng/mL Total Protein (5.8-8.3) g/dL Albumin (3.0-4.8) g/dL Globulin gm/dL Albumin/Globulin Ratio (1.1-1.8) Triglycerides (35-160) mg/dL Cholesterol (130-200) mg/dL LDL Cholesterol Direct (0-129) mg/dL HDL Cholesterol (29-60) mg/dL Blood Type O POSITIVE Blood Type Confirm O POSITIVE Antibody Screen Negative BBK History Checked No verified bt 12/20/18 12/20/18 12/20/18 Range/Units 11:00 11:00 11:00 WBC (4.5-11.0) 10^3/uL RBC (3.5-6.1) 10^6/uL Hgb (14.0-18.0) g/dL Hct (42.0-52.0) % MCV (80.0-105.0) fl MCH (25.0-35.0) pg MCHC (31.0-37.0) g/dl RDW (11.5-14.5) % Plt Count (120.0-450.0) 10^3/uL MPV (7.0-11.0) fl Neut % (Auto) (50.0-68.0) % Lymph % (Auto) (22.0-35.0) % Maries % (Auto) (1.0-6.0) % Eos % (Auto) (1.5-5.0) % Baso % (Auto) (0.0-3.0) % Lymph # (Auto) (1.2-3.4) Maries # (Auto) (0.1-0.6) Eos # (Auto) (0.0-0.7) Baso # (Auto) (0.0-2.0) K/mm3 Absolute Neuts (auto) (1.4-6.5) PT 12.6 H (9.4-12.5) SECONDS INR 1.12 APTT 34.0 (26.9-38.3) Seconds Fibrinogen (200-400) mg/dl Sodium 141 (132-148) mmol/L Potassium 5.2 H (3.6-5.0) mmol/L Chloride 113 H (98-107) mmol/L Carbon Dioxide 21 (21-33) mmol/L Anion Gap 12 (10-20) BUN 48 H (7-21) mg/dL Creatinine 3.1 H (0.8-1.5) mg/dl Est GFR ( Amer) 26 Est GFR (Non-Af Amer) 21 POC Glucose (mg/dL) (65-110) mg/dL Random Glucose 141 H (70-110) mg/dL Hemoglobin A1c 6.3 (4.2-6.5) % Calcium 8.7 (8.4-10.5) mg/dL Total Bilirubin 0.3 (0.2-1.3) mg/dL AST 23 (17-59) U/L ALT 16 (7-56) U/L Alkaline Phosphatase 103 (38-126) U/L Troponin I 0.03 ng/mL Total Protein 6.6 (5.8-8.3) g/dL Albumin 3.2 (3.0-4.8) g/dL Globulin 3.4 gm/dL Albumin/Globulin Ratio 0.9 L (1.1-1.8) Triglycerides 86 (35-160) mg/dL Cholesterol 161 (130-200) mg/dL LDL Cholesterol Direct 110 (0-129) mg/dL HDL Cholesterol 35 (29-60) mg/dL Blood Type Blood Type Confirm Antibody Screen BBK History Checked 12/20/18 Range/Units 11:00 WBC 8.1 (4.5-11.0) 10^3/uL RBC 4.08 (3.5-6.1) 10^6/uL Hgb 11.2 L (14.0-18.0) g/dL Hct 34.9 L (42.0-52.0) % MCV 85.5 (80.0-105.0) fl MCH 27.5 (25.0-35.0) pg MCHC 32.1 (31.0-37.0) g/dl RDW 15.7 H (11.5-14.5) % Plt Count 291 (120.0-450.0) 10^3/uL MPV 10.8 (7.0-11.0) fl Neut % (Auto) 73.7 H (50.0-68.0) % Lymph % (Auto) 14.6 L (22.0-35.0) % Maries % (Auto) 5.6 (1.0-6.0) % Eos % (Auto) 5.9 H (1.5-5.0) % Baso % (Auto) 0.2 (0.0-3.0) % Lymph # (Auto) 1.2 (1.2-3.4) Maries # (Auto) 0.5 (0.1-0.6) Eos # (Auto) 0.5 (0.0-0.7) Baso # (Auto) 0.02 (0.0-2.0) K/mm3 Absolute Neuts (auto) 5.95 (1.4-6.5) PT (9.4-12.5) SECONDS INR APTT (26.9-38.3) Seconds Fibrinogen (200-400) mg/dl Sodium (132-148) mmol/L Potassium (3.6-5.0) mmol/L Chloride (98-107) mmol/L Carbon Dioxide (21-33) mmol/L Anion Gap (10-20) BUN (7-21) mg/dL Creatinine (0.8-1.5) mg/dl Est GFR ( Amer) Est GFR (Non-Af Amer) POC Glucose (mg/dL) (65-110) mg/dL Random Glucose (70-110) mg/dL Hemoglobin A1c (4.2-6.5) % Calcium (8.4-10.5) mg/dL Total Bilirubin (0.2-1.3) mg/dL AST (17-59) U/L ALT (7-56) U/L Alkaline Phosphatase (38-126) U/L Troponin I ng/mL Total Protein (5.8-8.3) g/dL Albumin (3.0-4.8) g/dL Globulin gm/dL Albumin/Globulin Ratio (1.1-1.8) Triglycerides (35-160) mg/dL Cholesterol (130-200) mg/dL LDL Cholesterol Direct (0-129) mg/dL HDL Cholesterol (29-60) mg/dL Blood Type Blood Type Confirm Antibody Screen BBK History Checked Laboratory Results - last 24 hr 12/20/18 12/20/18 12/20/18 11:00 11:00 11:00 WBC 8.1 RBC 4.08 Hgb 11.2 L Hct 34.9 L MCV 85.5 MCH 27.5 MCHC 32.1 RDW 15.7 H Plt Count 291 MPV 10.8 Neut % (Auto) 73.7 H Lymph % (Auto) 14.6 L Maries % (Auto) 5.6 Eos % (Auto) 5.9 H Baso % (Auto) 0.2 Lymph # (Auto) 1.2 Maries # (Auto) 0.5 Eos # (Auto) 0.5 Baso # (Auto) 0.02 Absolute Neuts (auto) 5.95 PT 12.6 H INR 1.12 APTT 34.0 Fibrinogen Sodium 141 Potassium 5.2 H Chloride 113 H Carbon Dioxide 21 Anion Gap 12 BUN 48 H Creatinine 3.1 H Est GFR ( Amer) 26 Est GFR (Non-Af Amer) 21 POC Glucose (mg/dL) Random Glucose 141 H Hemoglobin A1c Calcium 8.7 Total Bilirubin 0.3 AST 23 ALT 16 Alkaline Phosphatase 103 Troponin I 0.03 Total Protein 6.6 Albumin 3.2 Globulin 3.4 Albumin/Globulin Ratio 0.9 L Triglycerides 86 Cholesterol 161 LDL Cholesterol Direct 110 HDL Cholesterol 35 Blood Type Blood Type Confirm Antibody Screen BBK History Checked 12/20/18 12/20/18 12/20/18 11:00 11:30 11:50 WBC RBC Hgb Hct MCV MCH MCHC RDW Plt Count MPV Neut % (Auto) Lymph % (Auto) Maries % (Auto) Eos % (Auto) Baso % (Auto) Lymph # (Auto) Maries # (Auto) Eos # (Auto) Baso # (Auto) Absolute Neuts (auto) PT INR APTT Fibrinogen Sodium Potassium Chloride Carbon Dioxide Anion Gap BUN Creatinine Est GFR ( Amer) Est GFR (Non-Af Amer) POC Glucose (mg/dL) Random Glucose Hemoglobin A1c 6.3 Calcium Total Bilirubin AST ALT Alkaline Phosphatase Troponin I Total Protein Albumin Globulin Albumin/Globulin Ratio Triglycerides Cholesterol LDL Cholesterol Direct HDL Cholesterol Blood Type O POSITIVE Blood Type Confirm O POSITIVE Antibody Screen Negative BBK History Checked No verified bt 12/20/18 12/20/18 12/20/18 16:17 20:45 23:12 WBC RBC Hgb Hct MCV MCH MCHC RDW Plt Count MPV Neut % (Auto) Lymph % (Auto) Maries % (Auto) Eos % (Auto) Baso % (Auto) Lymph # (Auto) Maries # (Auto) Eos # (Auto) Baso # (Auto) Absolute Neuts (auto) PT INR APTT Fibrinogen Sodium Potassium Chloride Carbon Dioxide Anion Gap BUN Creatinine Est GFR ( Amer) Est GFR (Non-Af Amer) POC Glucose (mg/dL) 187 H 117 H 105 Random Glucose Hemoglobin A1c Calcium Total Bilirubin AST ALT Alkaline Phosphatase Troponin I Total Protein Albumin Globulin Albumin/Globulin Ratio Triglycerides Cholesterol LDL Cholesterol Direct HDL Cholesterol Blood Type Blood Type Confirm Antibody Screen BBK History Checked 12/21/18 12/21/18 12/21/18 04:05 05:30 06:00 WBC 7.2 RBC 3.75 Hgb 10.4 L Hct 32.2 L MCV 85.9 MCH 27.7 MCHC 32.3 RDW 15.9 H Plt Count 254 MPV 11.0 Neut % (Auto) 74.1 H Lymph % (Auto) 15.1 L Maries % (Auto) 6.6 H Eos % (Auto) 4.1 Baso % (Auto) 0.1 Lymph # (Auto) 1.1 L Maries # (Auto) 0.5 Eos # (Auto) 0.3 Baso # (Auto) 0.01 Absolute Neuts (auto) 5.31 PT 12.2 INR 1.08 APTT 34.2 Fibrinogen 437 H Sodium Potassium Chloride Carbon Dioxide Anion Gap BUN Creatinine Est GFR ( Amer) Est GFR (Non-Af Amer) POC Glucose (mg/dL) 89 Random Glucose Hemoglobin A1c Calcium Total Bilirubin AST ALT Alkaline Phosphatase Troponin I Total Protein Albumin Globulin Albumin/Globulin Ratio Triglycerides Cholesterol LDL Cholesterol Direct HDL Cholesterol Blood Type Blood Type Confirm Antibody Screen BBK History Checked 12/21/18 07:34 WBC RBC Hgb Hct MCV MCH MCHC RDW Plt Count MPV Neut % (Auto) Lymph % (Auto) Maries % (Auto) Eos % (Auto) Baso % (Auto) Lymph # (Auto) Maries # (Auto) Eos # (Auto) Baso # (Auto) Absolute Neuts (auto) PT INR APTT Fibrinogen Sodium Potassium Chloride Carbon Dioxide Anion Gap BUN Creatinine Est GFR ( Amer) Est GFR (Non-Af Amer) POC Glucose (mg/dL) 93 Random Glucose Hemoglobin A1c Calcium Total Bilirubin AST ALT Alkaline Phosphatase Troponin I Total Protein Albumin Globulin Albumin/Globulin Ratio Triglycerides Cholesterol LDL Cholesterol Direct HDL Cholesterol Blood Type Blood Type Confirm Antibody Screen BBK History Checked Radiology Impressions: Radiology Impressions Chest X-Ray 12/20/18 11:19 IMPRESSION: No active pulmonary disease. Head CT 12/20/18 11:19 IMPRESSION: 1. 3.4 x 2.4 cm acute hematoma with mild surrounding vasogenic edema in the right basal ganglia. No evidence for mass effect, midline shift or herniation. The location of the acute hematoma is most compatible with a hypertensive hemorrhage. 2. 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 Critical findings were discussed with Dr. Barr in the ER on 12/20/2018 at 11:30 a.m. Hip/Pelvis X-Ray 12/20/18 13:29 IMPRESSION: No acute displaced fracture or dislocation. Please note occult fractures cannot be excluded on plain radiographs. If there is a persistent clinical concern, an MRI of the hip may be performed for further evaluation. EKG/Cardiology Studies: Cardiology / EKG Studies 12/20/18 11:19 ELECTROCARDIOGRAM Stat Comment: Reason For Exam: code stroke Fingerstick Blood Sugar Results: 92 Review of Systems - Review of Systems Review of Systems: 12 point ROS completed and negative except as described in HPI. Assessment/Plan - Assessment and Plan (Free Text) Assessment: 53 year old man with pmhx of hypertension and AFIB (on Eliquis) presents s/p R basal ganglia hemmorhagic stroke. Currently in ICU for neurological evaluation and management. Neuro: -AAOx3, no FND, moving extremities past midline. -Monitor neuro status. -Reorient patient as necessary. -Neuro consult -Dr. Fowler - further recs appreciated -Neurosurg on consult - Dr. Barajas - nonsurgical candidate Cardio: -Discontinue Nicardipine drip -Begin Amlodipine and Clonidine -Lasix 40 mg IVP daily -RRR, normotensive, no signs of HD compromise -Maintain MAP>65. -Monitor for S/S, HD compromise. Pulm: -No signs of respiratory distress. CTA B/L -Maintain O2 saturation>92%. -O2 NC PRN -Elevate bed to 30 degrees GI: -Passed swallow eval - Regular thin liquids -Protonix /Nephro: -BUN/Cr unstable at 3.1 -Lasix 40 mg IVP daily -Good urine output -Continue monitoring. -Replete electrolytes as needed. -Maintain euvolemia. -Nephro consult - Dr. Diggs- recs appreciated Endocrinology: -Random glucose: 101 -Maintain euglycemia. Heme/Onc: -H/H stable at 10.4 -No signs of HD compromise. -Continue monitoring H/H ID: -Afebrile, no leukocytosis -Monitor for signs and symptoms of infection. DVT prophylaxis: SCDs, no chemoprophylaxis in setting of intracranial bleed GI prophylaxis: PTX Patient seen, case reviewed and plan approved by Dr. Heard. All Small, PGY-1
[2018-12-21 09:10] LABS: ALB/GLOB RATIO 0.9 (1.1-1.8); ALBUMIN 2.8 g/dL (3.0-4.8); CALCIUM 8.5 mg/dL (8.4-10.5)
--- NOTE | 2018-12-21 09:15 | CARD ---
APPROVED REPORT Date of service: 12/20/2018 EKG Measurement Heart [id number] <Conclusion> Atrial fibrillation with a competing junctional pacemaker Left axis deviation Right bundle branch block Voltage criteria for left ventricular hypertrophy Inferior infarct, age undetermined T wave abnormality, consider lateral ischemia Abnormal ECG
[2018-12-21] MEDS: Sodium Chloride 0.9% 1,000 ML IV SCH ×2 (09:20)
--- NOTE | 2018-12-21 09:47 | CT ---
Date of service: 12/21/2018 PROCEDURE: CT HEAD WITHOUT CONTRAST. HISTORY: status of hemorrhage? COMPARISON: 12/20/2018 TECHNIQUE: Axial computed tomography images were obtained through the head/brain without intravenous contrast. Radiation dose: Total exam DLP = 996.41 mGy-cm. This CT exam was performed using one or more of the following dose reduction techniques: Automated exposure control, adjustment of the mA and/or kV according to patient size, and/or use of iterative reconstruction technique. FINDINGS: HEMORRHAGE: There is an acute hemorrhage in the right basal ganglia which is stable in appearance this measures 18 x 30 mm. There is minimal surrounding edema BRAIN: No mass effect or edema. There is chronic encephalomalacia in the right cerebellar hemisphere. VENTRICLES: Unremarkable. No hydrocephalus. CALVARIUM: Unremarkable. PARANASAL SINUSES: Unremarkable as visualized. No significant inflammatory changes. MASTOID AIR CELLS: Unremarkable as visualized. No inflammatory changes. OTHER FINDINGS: None. IMPRESSION: There is an acute hemorrhage in the right basal ganglia which is stable in appearance this measures 18 x 30 mm. There is minimal surrounding edema
--- NOTE | 2018-12-21 12:38 | PN ---
DATE: 12/21/2018 SUBJECTIVE: He is in the intensive care unit. He is actually improving from today. Yesterday, he could not move his left hand at all, now he can. He is not writhing in the bed anymore. He is more comfortable. He is trying to talk to me. I think he could do a swallow eval. He could not do that yesterday. I see an improvement. He is on Cardene IV, insulin, Lasix, Tylenol, Protonix, and IV fluids. PHYSICAL EXAMINATION: VITAL SIGNS: He has a 97.7 temperature, 77 pulse, 166/81 blood pressure with 22 respiratory rate, 98% O2 sat on room air. HEENT: Head is atraumatic, normocephalic. HEART: Regular rate. LUNGS: Decreased breath sounds. ABDOMEN: Soft. EXTREMITIES: He is moving much better. He is obese. [place] cruise [place] He came in with a stroke with a cerebral bleed. He is definitely improving with Cardene. He is not a brain surgery candidate. LABORATORY DATA: He has a 7.2 white count, 10.4 hemoglobin, 32.2 hematocrit, 254 platelets. He has got a 141 sodium, potassium 4.7, BUN is 47, creatinine 3.1, about the same as yesterday, GFR is 21, sugar is 71, calcium is 8.5, phosphorus 5.1, magnesium 2.2, total bilirubin is 0.5, AST is 50, ALT is 21, alk phos 83. ASSESSMENT AND PLAN: He has consults with Hematology, Oncology, Neurology, vegetable ii farmworker, Cardiology. I do think clinically he is improving. We will continue to watch his labs and physical condition. He will need physical therapy. He may need PRIETO. Continue aggressive treatment and care in the intensive care unit as per the specialist. Viktor Thomas DO
--- NOTE | 2018-12-21 13:25 | CON ---
DATE: 12/21/2018 NEUROLOGY CONSULT CHIEF COMPLAINT: Left facial droop and left side weakness. HISTORY OF PRESENT ILLNESS: This is a 53-year-old man, history of hypertension, history of obstructive sleep apnea on CPAP, history of AFib on Eliquis. While he was at work, he had a sudden onset of left side weakness, left facial droop and slurring of the words, came to the hospital, had elevated systolic and diastolic blood pressure, had a CAT scan of the head which showed an acute hemorrhage of the right basal ganglia which is stable in appearance of 18 x 13 mm. Repeat CAT scan showed no change in the hemorrhage and showed minimal swelling of edema. He is off any anti-platelets and anticoagulants. He was given PCC as well. He is currently in ICU, being monitored. He still has some left side weakness which was much better than his initial presentation. Blood pressure is getting controlled. ALLERGIES: NO KNOWN DRUG ALLERGIES. MEDICATIONS: Reviewed by nurses' reconciliation sheet. PAST MEDICAL HISTORY: As above. SOCIAL HISTORY: No illicit drug use, smoking, or EtOH abuse. REVIEW OF SYSTEMS: A 14-point review of systems is as per HPI. PHYSICAL EXAMINATION: VITAL SIGNS: Afebrile. Pulse rate 74, blood pressure 116/75. GENERAL: The patient is seen up in bed. No acute distress. HEENT: Head is atraumatic and normocephalic. PERRLA. Extraocular muscles intact. NECK: Supple. No JVD. No adenopathy noted. Has Mallampati score of 4. HEART: S1 and S2. Normal rate and rhythm. No murmurs, rubs or gallops. ABDOMEN: Soft and nontender. Nondistended. Bowels sounds present. EXTREMITIES: No clubbing. No cyanosis. Peripheral pulses 2+ felt bilaterally. NEUROLOGIC: The patient is alert and oriented to person, place, month, and year. Speech is fluent without any errors. Cranial nerves II through XII are intact except for a left facial droop. Motor exam; left upper and left lower extremities are 4/5 in strength, right side is intact. Toes are upgoing bilaterally. Sensory exam; light touch and pinprick, proprioception, and vibration are intact. DTRs are 2+ throughout. Coordination; [id number] is intact. No dysmetria noted. Gait is deferred for now. LABORATORY DATA: Sodium 141, potassium 4.7, chloride 113, carbon dioxide 22, BUN of 47, creatinine 3.1 and random glucose 71. IMPRESSION: A 53-year-old man with history of hypertension; he has atrial fibrillation, on Eliquis; history of sleep apnea on continuous positive airway pressure at home who presented with sudden onset left facial droop, left side weakness which was secondary to his right basal ganglia hemorrhage secondary to uncontrolled hypertension. At this time we will recommend, 1. Hold antiplatelet or anticoagulants for next 3-1/2 weeks from the onset . 2. Acute systolic blood pressure 120/130 mmHg, and . 3. Repeat CAT scan is stable and no change in appearance. 4. PT/OT and acute rehab and continue to monitor electrolytes and correct accordingly. Thank you for this consult. Aubrey Fowler MD
--- NOTE | 2018-12-21 16:46 | CARD ---
APPROVED REPORT Date of service: 12/21/2018 EXAM: Two-dimensional and M-mode echocardiogram with Doppler and color Doppler. INDICATION CVA/TIA 2D DIMENSIONS Left Atrium (2D)4.9 (1.6-4.0cm)IVSd1.9 (0.7-1.1cm) LVDd4.4 (3.9-5.9cm)PWd1.9 (0.7-1.1cm) LVDs3.4 (2.5-4.0cm)FS (%) 22.1 % LVEF (%)44.0 (>50%) M-Mode DIMENSIONS Aortic Root3.40 (2.2-3.7cm)Aortic Cusp Exc.2.30 (1.5-2.0cm) Aortic Valve AoV Peak Fxvmcfkh676.0cm/Jeff Peak GR.7mmHg Mitral Valve E/A ratio0.0 TDI E/Lateral E'0.0E/Medial E'0.0 Tricuspid Valve TR Peak [id number]/sRAP [id number] Peak Gr.20mmHg [id number] LEFT VENTRICLE The left ventricle is normal size. There is moderate concentric left ventricular hypertrophy. The systolic function is mildly impaired. Regional wall motion abnormalities noted. A Fib RIGHT VENTRICLE The right ventricle is normal size. There is normal right ventricular wall thickness. The right ventricular systolic function is normal. ATRIA The left atrium is mildly dilated. The right atrium size is normal. AORTIC VALVE The aortic valve is mildly thickened. No aortic regurgitation is present. There is no aortic valvular stenosis. MITRAL VALVE The mitral valve is moderately thickened. Mitral regurgitation is mild. There is no mitral valve stenosis. TRICUSPID VALVE There is mild tricuspid regurgitation. PULMONIC VALVE There is trace pulmonic valvular regurgitation. GREAT VESSELS The aortic root is normal in size. The IVC collapses <50% with inspiration. PERICARDIAL EFFUSION There is a trace pericardial effusion. <Conclusion> The left ventricle is normal size. There is moderate concentric left ventricular hypertrophy. The systolic function is mildly impaired. Regional wall motion abnormalities noted. Mitral regurgitation is mild. There is mild tricuspid regurgitation.
[2018-12-21] MEDS ORDERED: Lidocaine 5% Patch TD STA (18:12)
--- NOTE | 2018-12-21 19:12 | CON ---
DATE: 12/21/2018 NEUROLOGY CONSULTATION REFERRING PHYSICIAN: Zachariah Liu MD in [facility] HISTORY OF PRESENT ILLNESS: The patient called in for Code Stroke called. The patient had intracranial hemorrhage. The patient is not a tPA candidate. Mr. Josue Clark is a 53-year-old male with past medical history of atrial fibrillation who is on Eliquis and hypertension. 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 There is no past history of stroke. He received 4 mg of sublingual nitroglycerin and 40 mg of lisinopril. The patient was complaining of severe back pain, 9/10 from the mid thoracic area radiating down to the legs bilaterally. He had a headache as well, which was 9/10. These symptoms were positive for fatigue, malaise, headache, nausea, and vomiting. PAST MEDICAL HISTORY: As above. Diabetes type 1. PAST SURGICAL HISTORY: As above. FAMILY HISTORY AND SOCIAL HISTORY: The patient is . 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 There is occasional tobacco use. ALLERGIES: NO KNOWN DRUG ALLERGIES. HOME MEDICATIONS: As follows; Coreg 25 mg p.o. daily, insulin 26 units subcu continuously, hydralazine 10 mg p.o. b.i.d. PHYSICAL EXAMINATION NEUROLOGICAL: On exam; the patient was alert and oriented x3. Pupils equally round and reactive to light. Cranial nerves II through XII were normal. There was left facial droop. Motor; the left arm was 0/5, the left leg was 0/5. He was not responding to internal stimuli. Right arm and leg were 5/5. Sensory was decreased fine touch and pin in the left arm, and left leg compared to the right arm and right leg. Speech was fluent. Reflexes were +1 in upper and lower limbs bilaterally. Toes were downgoing. There was no clonus. Gait was not tested. LABORATORY DATA: As follows; white count 7.2, hemoglobin 10.4, hematocrit 32.2, and platelets 254. Coag showed PT 12.6, fibrinogen 0.37. Chemistry shows similarly sodium 141, potassium 5.2, BUN 48, creatinine 2.1, and glucose 89. AST and ALT were normal. Triglycerides were 86, cholesterol 151, LDL 110, and HDL 35. CT scan of the head showed the following; there is a 3.4 x 2.4 cm acute hematoma with mild surrounding vasogenic edema in the right basal ganglia. There is no mass effect. Cystic encephalomalacia was noted in the right posterior superior cerebellum, which was suspicious for remote superior cerebellar artery infarct. IMPRESSION: This is a 53-year-old male with a hypertensive hemorrhage in the right basal ganglia resulting in left arm and face plegia. The hemorrhage is most likely secondary to increased hypertension as well as use of Eliquis. PLAN: 1. Admit to ICU. 2. Keep the blood pressure normotensive. 3. Hold Eliquis. 4. DVT prophylaxis on Venodyne. 5. Physical therapy. 6. Dysphasia evaluation. 7. Neuro checks. 8. Repeat CT head in the a.m. Thank you for this interesting consult. Our team will follow. Shagufta Tbubs MD
--- NOTE | 2018-12-21 19:59 | PN ---
DATE: 12/21/2018 SUBJECTIVE: The patient is awake and alert. There are no obvious focal deficits. PHYSICAL EXAMINATION: VITAL SIGNS: Blood pressure is 116/75. The heart rate is in the 60s, atrial fibrillation with a 3-second pause while the patient was sleeping. NECK: Negative JVD. LUNGS: Without rales. HEART: S1 and S2. EXTREMITIES: Without edema. LABORATORY DATA: BUN and creatinine is 47 and 3.1. Hemoglobin is 10.4. IMPRESSION: 1. Hemorrhagic stroke while on Eliquis. 2. Atrial fibrillation. 3. Renal insufficiency. 4. Stable angina. 5. Percutaneous transluminal coronary angioplasty and stent at [facility] in the past. 6. Hypertension. PLAN: Given these findings, we will stop the clonidine for now and observe the patient for the next 24 to 48 hours to see if there is recurrence of his marked bradycardia. So far, there are no hemodynamic sequelae. If the heart block continues, we will need to discuss with the patient about the need for a pacemaker. In addition, I discussed with the patient about considering a Watchman procedure given his inability to have anticoagulation with his intracerebral event. He is unaware of it and instead, he wants to get his spine manipulated to help his atrial fibrillation, which he heard from some physicians. I have discussed with the patient that I am unaware of any spine manipulation helping atrial fibrillation. Adelfo Edwards MD
[2018-12-22] MEDS: Insulin Reg-MEDIUM-Coverage SC SCH ×6 (04:23→23:00)
[2018-12-22] MEDS: Pantoprazole 40 mg EC Tab PO SCH (06:11)
[2018-12-22 06:41] LABS: BASO # 0.02 K/mm3 (0.0-2.0); BASO % 0.3 % (0.0-3.0); EOS # 0.6 (0.0-0.7); EOS % 8.2 % (1.5-5.0); HEMOGLOBIN 11.5 g/dL (14.0-18.0); LYMPH # 0.9 (1.2-3.4); LYMPH % 13.6 % (22.0-35.0); MEAN CELL VOLUME 86.4 fl (80.0-105.0); MEAN CORPUSCULAR HEMOGLOBIN 27.5 pg (25.0-35.0); MEAN CORPUSCULAR HGB CONC 31.9 g/dl (31.0-37.0); MEAN PLATELET VOLUME 10.8 fl (7.0-11.0); MONO # 0.7 (0.1-0.6); RBC 4.18 10^6/uL (3.5-6.1); RED CELL DISTRIBUTION WIDTH 15.9 % (11.5-14.5); WHITE BLOOD COUNT 6.7 10^3/uL (4.5-11.0)
--- NOTE | 2018-12-22 07:10 | CON ---
DATE: 12/21/2018 CONSULTATION REASON FOR CONSULTATION: Acute kidney injury versus chronic kidney disease, intracranial hemorrhage, anemia. HISTORY OF PRESENTING ILLNESS: This is a 53-year-old male seen in the ICU. Daughter is at bedside. The patient admitted yesterday. The patient reports that he was at work. He slipped and he fell. He fell on to his left side. He was noted by co-workers to have weakness. He was found to have a left facial droop, left arm, and left leg paralysis; he was brought to the emergency room. Prior to arrival in the emergency room, he received 4 mg of sublingual nitro and 40 mg of . In the emergency room, he was found to be severely hypertensive. He had a CT scan of his head which showed a 3.4- x -cm acute hematoma with mild surrounding edema in the right basal ganglia. There was no mass effect, no midline shift, or herniation. The patient was admitted to the ICU. He was started on a Cardene drip. He was seen by Neurosurgery, no acute intervention was recommended. He was also seen by Neurology. His initial blood work showed a creatinine of 3.1; hence, a consultation was requested. PAST MEDICAL AND SURGICAL HISTORY: Longstanding diabetes, longstanding hypertension, hyperlipidemia, peripheral edema/peripheral vascular disease. The patient reports that 2 years ago, he did some kind of a Natural Therapy. He took a shake for 11 days and that cured his diabetes. He is not on any medications for diabetes for the last two years. He reports that his last A1c was 6.6!! FAMILY HISTORY: Hypertension, diabetes. SOCIAL HISTORY: No smoking, no alcohol use, no IV drug abuse. ALLERGIES: NO KNOWN DRUG ALLERGIES. MEDICATIONS AT HOME: Hydralazine 10 b.i.d., Coreg 25 daily? REVIEW OF SYSTEMS: Currently, the patient complains of a mild headache. He denies any shortness of breath. He denies any chest tightness. He denies any palpitations. PHYSICAL EXAMINATION: GENERAL: Well-built, middle-aged male, lying in bed in the ICU, with some facial droop on the left side, weakness on the left side of his body. VITAL SIGNS: Blood pressure 158/78, heart rate 74, respiratory rate 18, temperature 97.7. HEENT: Normocephalic, atraumatic, positive pallor. NECK: Supple, no JVD. LUNGS: Bilateral equal entry, bilateral equal expansion. CARDIAC: S1, S2, regular rate and rhythm, no murmur, no rub. ABDOMEN: Obese, distended, soft, nontender, bowel sounds present. EXTREMITIES: Chronic lower extremity edema, 2+; chronic stasis changes, neurologically weakness on the left side of the body. Intake and output, 2690/900. LABORATORY DATA: WBC 8.1, hemoglobin 11.2, hematocrit 35, platelets 291. Sodium 141, potassium 4.7, chloride 113, CO2 of 22, BUN 47, creatinine 3.1, glucose 71, calcium 8.5, phosphorus 5.1, magnesium 2.2, albumin 2.8. A1c 6.3. CT of the head reveals a 3.4- x -cm acute hematoma with surrounding edema in the right basal ganglion, cystic encapsulation on the right posterior superior cerebellum. Repeat head CT from this morning shows a stable right ganglion hemorrhage. Echocardiogram reveals a normal left ventricular size, moderate left ventricular hypertrophy, systolic function is mildly impaired, regional wall motion abnormalities noted. Mitral regurgitation, mild. CURRENT MEDICATIONS: Hydralazine 25 q.i.d., Lasix 40 IV daily, amlodipine 10, Protonix 40. Cardene drip is off. ASSESSMENT: 1. Acute intracerebral hemorrhage, right basal ganglion hemorrhage, left hemiparesis. 2. Longstanding history of diabetes, currently not on any medication at home. 3. Severe hypertension. 4. Elevated creatinine ?baseline. 5. Peripheral vascular disease/edema. PLAN: 1. Tight control of blood pressure is needed in light of intracerebral hemorrhage, continue hydralazine, amlodipine, Lasix. 2. Need to get outpatient records from primary doctor. 3. Check urinalysis. 4. Check phosphorus. 5. Consultation regarding importance of glycemic control and blood pressure control in slowing down the progression of renal disease, long time spent with daughter, , and the patient in counseling and coordination of care. More than 35 minutes spent in the care of this patient. Chloe Diggs MD
[2018-12-22 07:20] LABS: ALB/GLOB RATIO 0.9 (1.1-1.8); ALBUMIN 3.1 g/dL (3.0-4.8); CALCIUM 8.7 mg/dL (8.4-10.5)
--- NOTE | 2018-12-22 10:20 | CT ---
Date of service: 12/22/2018 PROCEDURE: CT of the left hip without contrast HISTORY: Left Side hip pain, NO IV contrast COMPARISON: TECHNIQUE: Radiation dose: Total exam DLP = 932 mGy-cm. This CT exam was performed using one or more of the following dose reduction techniques: Automated exposure control, adjustment of the mA and/or kV according to patient size, and/or use of iterative reconstruction technique. FINDINGS: There is no evidence of hip fracture. There are no significant degenerative changes. There is subcutaneous edema over the left lateral thigh. There is no muscular edema or hemorrhage. IMPRESSION: Negative study
--- NOTE | 2018-12-22 11:51 | PN ---
DATE: 12/22/2018 SUBJECTIVE: He is resting in bed at this time. He is having a lot of left hip pain. 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 The x-rays were normal. I am going to do a CAT scan of the left hip with the pain is extreme, it raise his blood pressure tremendously and he was given tramadol by the resident. I will put a Lidoderm patch on it. I prefer not to have any NSAIDS due to his elevation of BUN and creatinine. Besides his left hip pain, he is feeling a little bit better overall. He can move all extremities. The symptoms of stroke from the cerebral bleed is really improved, was close to 90%, but he will need PRIETO as he cannot walk. He has acute kidney injury. He was also having pauses of 4 seconds. We will see if the adjustment of medications just they will help him with that. We will see what Dr. Edwards, the laborer cutting tool has to say. He is eating, but he is definitely much improved overall from the intensive care unit when he could not move his left side. PHYSICAL EXAMINATION: VITAL SIGNS: He has a 97.8 temperature, 80 pulse, blood pressure 179/111 when he is in pain, it came down to 157/73, 20 respiratory rate, and 98% O2 sat on CPAP last night with RICHARD. HEENT: His head is atraumatic, normocephalic. He could smile. The tongue is midline. No facial asymmetry. HEART: Regular rate at this time. No pauses, but he did have 4 second pause last night, while sleeping asymptomatic. LUNGS: Decreased breath sounds, but clear. Poor inspiration. ABDOMEN: Soft, nontender. Positive bowel sounds. Obese. EXTREMITIES: He could move all four extremities. Now even the left hand has got motion and fairly good strength. He improved greatly while he is in the ER when he could not move the left hand at all. ASSESSMENT AND PLAN: I like to start getting some physical therapy, walking, out of bed to chair. He will need PRIETO, I have a feeling of doing a CAT scan of the left hip, because the pain is extreme and the x-rays were negative. fracture and he has cerebellar bleed, pauses, acute kidney injury, possibly on top of chronic kidney disease. Viktor Thomas DO GUERLINE
--- NOTE | 2018-12-22 15:06 | PN ---
DATE: 12/22/2018 SUBJECTIVE: The patient is currently seen lying comfortably in bed on 2R. He appears to be stable. He states that he has significant improvement in the movement of the left side of his body. He is status post an acute intracerebral hemorrhage, right basal ganglia bleed. The patient tells me that he was told to follow with a hand tennis ball coverer out of [facility]. He states that he knows that he does have a history of chronic kidney disease, but does not know the severity of his chronic kidney disease. MEDICATIONS: Medication list reviewed. The patient is currently on hydralazine, clonidine, insulin, IV Lasix, Norvasc, Protonix. OBJECTIVE: INTAKE/OUTPUT: Intake is 420, output is 600. Weight today is 271 pounds 3 ounces. VITAL SIGNS: Current blood pressure is 167/83, temperature is 98.1, pulse of 73 with a respiratory rate of 20. Oxygen saturation is 98%. HEENT: Shows him to be normocephalic, atraumatic. The facial droop of the left side face resolved. Conjunctivae are pink. Sclerae are nonicteric. NECK: Supple. No neck vein distention. CHEST: Clear to auscultation and percussion. No rales, rhonchi or wheezing. CARDIOVASCULAR: Shows irregular S1 and S2 with MR/TR. No S3. No S4. No rub. ABDOMEN: Moderately obese. No distention. Soft, nontender, bowel sounds are present. No rebound. No guarding. EXTREMITIES: Show trace to 1+ pitting ankle edema. No cyanosis or clubbing. Slight diminished lower extremity pulses. NEUROLOGIC: Shows him to be alert, oriented x3. His hand rfid strategist is almost back to normal on the left side. He is moving his left lower extremity without difficulty. LABORATORY DATA AND IMAGING: Followup head CT done yesterday shows an acute hemorrhage in the right basal ganglia, which is stable in appearance. There is minimal surrounding edema. CBC: White blood cell count 6.7, hemoglobin 11.5, platelet count is 269,000. Chemistries show normal electrolytes, sodium and potassium. Chloride 110 with a CO2 of 20. BUN is 47 with a creatinine of 3.4. Estimated GFR is approximately 19 mL per minute. Calcium is 8.7 with phosphorus of 5.5. Magnesium is 2.2, albumin is 3.1. No urine is available for comment. Echocardiogram was done which showed LVH, ejection fraction of 44%, mitral regurgitation and tricuspid regurgitation. ASSESSMENT: 1. Status post acute intracerebral hemorrhage with a right basal ganglia bleed. The patient initially presented with left facial droop and left-sided hemiparesis. This is continuing to improve rapidly. 2. Longstanding history of diabetes mellitus, the patient remains on insulin. Hemoglobin A1c was excellent at 6.3%. 3. History of hypertension, difficult to control for many years. The patient states that he believes his chronic kidney disease is secondary to hypertension rather than diabetes. 4. In all likelihood, the patient has chronic kidney disease, the severity is unknown. The patient states that he had seen hand tennis ball coverer in the past when he was admitted to [facility]. He was told he had weakness in his kidney, but does not remember the numbers. He is willing to follow up with us in the outpatient setting and was given the appropriate information for followup care. 5. History of atrial fibrillation. The patient had been on chronic anticoagulation and beta-joseph therapy. 6. History of peripheral vascular disease, stable. 7. History of hyperphosphatemia with likely secondary hyperparathyroidism. We will check a PTH level and check the vitamin D level. PLAN: 1. Continue to adjust blood pressure medicines. Blood pressures in the 150-160 range is currently acceptable given his recent stroke. The patient remains on hydralazine, clonidine and Norvasc. We will hold MICHEL inhibition and angiotensin receptor joseph therapy in light of his advanced chronic kidney disease. 2. The patient to start a renal diet. 3. We will start binder therapy and check a PTH and vitamin D level. 4. We will obtain a renal ultrasound in light of his chronic kidney disease. We will also obtain a 24-hour urine for creatinine clearance and protein as the patient will likely remain in inpatient for the next 24 hours. 5. Continue to monitor glucose levels and adjust insulin accordingly. 6. Okay to continue IV diuretic therapy for his lower extremity edema which is rapidly improving. 7. Close renal followup both as an inpatient and as an outpatient. Discussed with the patient in detail. Discussed with the patient's in detail. Ross Vieyra MD MTDD
--- NOTE | 2018-12-22 15:15 | PN ---
DATE: 12/22/2018 CARDIOLOGY FOLLOWUP SUBJECTIVE: The patient is persisted with multiple 3 to 4 seconds pauses occurring at night, off his clonidine. PHYSICAL EXAMINATION: VITAL SIGNS: Blood pressure has gone up to 198 systolic. Currently, the patient's atrial fibrillation with the heart rate in the 60s. NECK: Negative JVD. HEART: S1, S2. LUNGS: Without rales. EXTREMITIES: Without edema. LABORATORY DATA: Hemoglobin is 11.5. Chemistries, BUN and creatinine is 47 and 34. IMPRESSION: 1. Intracerebral bleed. 2. Atrial fibrillation with marked bradycardia. 3. Accelerated hypertension. 4. Diabetes mellitus. Given these findings, I have discussed in detail with the patient about the need for pacemaker given his recurrent bradycardia. His benefits were discussed in detail. The patient is agreeable. We will arrange for a pacemaker to be placed tomorrow. We will continue the patient on telemetry. Now, we will order a clonidine p.o. for blood pressure control. The clonidine had controlled his pressure well previously and is not able to use given his poor renal function. Adelfo Edwards MD
[2018-12-23] MEDS: Insulin Reg-MEDIUM-Coverage SC SCH ×6 (04:00→20:49)
[2018-12-23] MEDS: Pantoprazole 40 mg EC Tab PO SCH (06:18)
[2018-12-23 07:11] LABS: BASO # 0.01 K/mm3 (0.0-2.0); BASO % 0.2 % (0.0-3.0); EOS # 0.5 (0.0-0.7); EOS % 7.5 % (1.5-5.0); HEMOGLOBIN 10.9 g/dL (14.0-18.0); LYMPH % 15.8 % (22.0-35.0); MEAN CELL VOLUME 86.3 fl (80.0-105.0); MEAN CORPUSCULAR HEMOGLOBIN 27.1 pg (25.0-35.0); MEAN CORPUSCULAR HGB CONC 31.4 g/dl (31.0-37.0); MEAN PLATELET VOLUME 10.9 fl (7.0-11.0); MONO # 0.6 (0.1-0.6); MONO % 9.6 % (1.0-6.0); RBC 4.02 10^6/uL (3.5-6.1); RED CELL DISTRIBUTION WIDTH 15.6 % (11.5-14.5); WHITE BLOOD COUNT 6.1 10^3/uL (4.5-11.0)
[2018-12-23 07:31] LABS: ALB/GLOB RATIO 0.9 (1.1-1.8)
--- NOTE | 2018-12-23 10:02 | PN ---
DATE: 12/23/2018 SUBJECTIVE: The patient is asymptomatic. PHYSICAL EXAMINATION: VITAL SIGNS: Blood pressure 128/64, heart rate goes down to the 40s with heart block with a-fib. NECK: Negative JVD. LUNGS: Without rales. HEART: S1, S2. EXTREMITIES: Without edema. LABORATORY DATA: Hemoglobin is 10.8. Chemistries, BUN and creatinine is 46 and 3.1. IMPRESSION: 1. Renal insufficiency. 2. Atrial fibrillation with marked bradycardia and pauses. 3. Hypertension. 4. Diabetes mellitus. 5. Recent intracerebral bleed. PLAN: Given these findings, no anticoagulation can be given, given his recent intracerebral bleed. The patient is scheduled for pacemaker today. Blood pressure is much better controlled. Adelfo Edwards MD
--- NOTE | 2018-12-23 12:42 | PN ---
DATE: 12/23/2018 SUBJECTIVE: He is comfortable in bed. He is trying a little bit in physical therapy. He is eating okay. He is going for permanent pacemaker today for his pauses. MEDICATIONS: He is on Apresoline, Catapres, Lasix, Norvasc, PhosLo, and Protonix. PHYSICAL EXAMINATION: VITAL SIGNS: He has a 97.8 temp, 62 pulse, 120/64 blood pressure, 20 respiratory rate, and 95% O2 sat on room air. HEENT: Head is atraumatic and normocephalic. HEART: Regular rate. LUNGS: Decreased breath sounds, but clear. ABDOMEN: Soft and obese. EXTREMITIES: No edema. Maybe a smidgen of weakness on the left side. Pulses have been 45 and 50 in the middle of the night. LABORATORY DATA: He has a 6.1 white count, 10.9 hemoglobin, 34.7 hematocrit with 262 platelets. Sodium 139, potassium is 5, BUN is 46, creatinine 3.1 a bit better, GFR is 21, sugar is 93, calcium is 9, phosphorous 5.4, magnesium 2.2, total bili is 0.4, AST is 21, ALT is 27, alk phos 88, and total protein 6.4. ASSESSMENT AND PLAN: He is being seen by Renal and Cardiology. He had a intracerebral bleed, atrial fibrillation, marked bradycardia, accelerated hypertension, and diabetes. He also need to go to acute rehab. He is getting a pacemaker today. Medicine changes as per Renal. We are watching the BUN and creatinine. He had a hip CT scan, negative. So, nothing broken in the hip, even though having some pain. So, permanent pacemaker today, watching kidney, and Acute Rehab eventually. Viktor Thomas DO
[2018-12-23 14:18] LABS: URINE BILIRUBIN NEGATIVE (NEGATIVE); URINE BLOOD TRACE-LYSED (NEGATIVE); URINE GLUCOSE (UA) 100 mg/dL (NEGATIVE); URINE LEUKOCYTE ESTERASE NEGATIVE Leu/uL (NEGATIVE); URINE PROTEIN >=300 mg/dL (<30 mg/dL); URINE UROBILINOGEN 0.2 E.U./dL (<1 E.U./dL)
[2018-12-23 14:20] LABS: URINE APPEARANCE CLEAR (CLEAR); URINE COLOR YELLOW (YELLOW)
[2018-12-23 14:23] LABS: URINE EPITHELIAL CELLS 0 - 2 /hpf (0-5)
[2018-12-23 14:24] LABS: URINE BACTERIA MOD /hpf; URINE COARSE GRANULAR CAST TRACE /hpf; URINE FINE GRANULAR CAST 0 - 2 /hpf
[2018-12-23 14:25] LABS: URINE AMORPHOUS SEDIMENT FEW /hpf
--- NOTE | 2018-12-23 15:29 | US ---
Date of service: 12/23/2018 PROCEDURE: Ultrasound of the Kidneys HISTORY: Unc HTN, CKD, Check kidney size, R/O PATRICA COMPARISON: None available. TECHNIQUE: Sonogram of the kidneys. FINDINGS: RIGHT KIDNEY: Measures: 12.5 x 5.9 x 6.0 cm. No obstructing calculus, hydronephrosis, or renal cyst identified. LEFT KIDNEY: Measures: 12.5 x 6.5 x 6.0 cm. No obstructing calculus, hydronephrosis, or renal cyst identified. OTHER FINDINGS: None. IMPRESSION: Unremarkable renal sonogram as above.
[2018-12-23] MEDS ORDERED: Lidocaine PF 2% (5 ml) Inj (For Cardiac Arrhy) ONE ×2 (17:02)
[2018-12-23] MEDS ORDERED: Midazolam 2 MG/2 ML VIAL ONE ×2 (17:04→17:40)
--- NOTE | 2018-12-23 17:32 | US ---
PROCEDURE: Bilateral renal artery duplex ultrasound. CLINICAL HISTORY: Renal artery stenosis. Uncontrolled hypertension. Evaluate for renovascular hypertension. PHYSICIAN(S): Adelfo Mayers M.D. TECHNIQUE: Duplex sonography with color-flow Doppler was used to evaluate the visualized segments of the main renal arteries. The patient was evaluated in a fasting state. Imaging in a supine and decubitus position was performed. Limited evaluation of the arcuate waveforms and resistive indices were performed. FINDINGS: The exam is very limited in the main renal arteries are not adequately visualized. The kidneys are normal in size, shape, and location. The right kidney measures 12.4cm in length and the left kidney measures 12.4cm in length. No solid renal masses, abnormal calcifications, or hydronephrosis is seen. The main right renal artery is not adequately visualized. Only segments are seen. The peak systolic velocity in the right main renal artery is 88 cm/sec. This is consistent with a 0 to 49% stenosis in the main right renal artery. The main left renal artery is not adequately visualized. IMPRESSION: 1. The main renal arteries are not adequately visualized. If clinical suspicion for renal artery stenosis is high, a CTA or MRA with gadolinium evaluation can be obtained 2. The kidneys are normal and symmetric in size. There are no solid renal masses, abnormal calcifications or hydronephrosis noted.
[2018-12-23] MEDS ORDERED: Iodixanol 320 MG/ML 100 ML BOTTLE IV ONE (17:53)
[2018-12-23] MEDS ORDERED: Liquid Adhesive TOP ONE (18:29)
[2018-12-23] MEDS: Oxycodone/Acetaminophen 5/325 mg Tab PO PRN (22:22)
--- NOTE | 2018-12-23 23:34 | PN ---
DATE: 12/23/2018 SUBJECTIVE: The patient is seen sitting in chair. He is awake. He is alert. He is comfortable. He complains of some weakness on the left side. He reports the strength is improving. PHYSICAL EXAMINATION: GENERAL: Middle-aged male sitting in bed. VITAL SIGNS: Blood pressure 188/92, heart rate 64, respiratory rate 14, and temperature 98.1. HEENT: Normocephalic and atraumatic. Positive pallor. NECK: Supple. No JVD. LUNGS: Bilateral equal air entry, bilateral equal expansion. No rales. No rhonchi. CARDIAC: S1 and S2. Regular rate and rhythm. No murmur. No rub. ABDOMEN: Obese, distended, soft, and nontender. Bowel sounds present. EXTREMITIES: No lower extremity edema. INTAKE AND OUTPUT: 240/900. LABORATORY DATA: WBC of 6.1, hemoglobin 10.9, hematocrit 34.7, and platelets 262. Sodium 139, potassium 5, chloride 111, CO2 of 24, BUN of 46, creatinine 3.1, glucose 93, calcium 9, phosphorus 5.4, magnesium 2.2, and albumin 3. Urinalysis; yellow, clear, pH 6, specific gravity 1.020, protein greater than 300, glucose 100, blood trace light, and rbc's 2 to 5. Ultrasound of the kidneys; right kidney 12.5 and left kidney 12.5. Renal artery Dopplers; right and left renal arteries not well visualized, but kidneys are symmetric in size and no solid masses. PTH of 213 and phosphorous 5.4. CURRENT MEDICATIONS: Apresoline was increased to 50 t.i.d. this morning, clonidine 0.1 b.i.d., insulin, Lasix 40 IV daily, amlodipine 10, PhosLo with meals, Percocet, and Protonix. ASSESSMENT: 1. 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 2. Severe hypertension. 3. Underlying chronic kidney disease, stage III/IV? 4. ?acute kidney injury. 5. Nephrotic-range proteinuria. 6. History of diabetes. 7. Hyperphosphatemia/secondary hyperparathyroidism. 8. Anemia. PLAN: 1. Add Lopressor 25 b.i.d. 2. Continue hydralazine 50 t.i.d. and amlodipine 10. 3. We will hold off on ARB for now. 4. Check iron stores. 5. Check ESR/ISIAH. 6. HIV test if the patient is agreeable. 7. [id number] urine for protein and creatinine clearance. 8. Continue phosphate binder. 9. Start calcitriol 0.25 mcg daily. 10. Get outpatient information from PMD. Chloe Diggs MD
[2018-12-24] MEDS: Insulin Reg-MEDIUM-Coverage SC SCH ×2 (02:27→06:25)
[2018-12-24] MEDS: Oxycodone/Acetaminophen 5/325 mg Tab PO PRN (05:57)
[2018-12-24] MEDS: Pantoprazole 40 mg EC Tab PO SCH (05:57)
[2018-12-24 07:09] LABS: BASO # 0.01 K/mm3 (0.0-2.0); BASO % 0.1 % (0.0-3.0); EOS # 0.5 (0.0-0.7); EOS % 6.8 % (1.5-5.0); HEMOGLOBIN 11.2 g/dL (14.0-18.0); LYMPH # 0.8 (1.2-3.4); LYMPH % 12.2 % (22.0-35.0); MEAN CELL VOLUME 86.1 fl (80.0-105.0); MEAN CORPUSCULAR HEMOGLOBIN 27.3 pg (25.0-35.0); MEAN CORPUSCULAR HGB CONC 31.6 g/dl (31.0-37.0); MEAN PLATELET VOLUME 10.8 fl (7.0-11.0); MONO # 0.6 (0.1-0.6); MONO % 8.4 % (1.0-6.0); RBC 4.11 10^6/uL (3.5-6.1); RED CELL DISTRIBUTION WIDTH 15.5 % (11.5-14.5); WHITE BLOOD COUNT 6.8 10^3/uL (4.5-11.0)
[2018-12-24 07:14] LABS: IRON 35 ug/dL (45-180)
[2018-12-24 07:23] LABS: % IRON SATURATION 12 % (20-55); TOTAL IRON BINDING CAPACITY 298 ug/dL (261-462)
[2018-12-24 07:38] LABS: ALB/GLOB RATIO 0.9 (1.1-1.8); CALCIUM 8.8 mg/dL (8.4-10.5)
--- NOTE | 2018-12-24 08:44 | OP ---
PROCEDURE DATE: 12/23/2018 PROCEDURE: Insertion of permanent pacemaker (single chamber). PREPROCEDURE DIAGNOSES: 1. Bradycardia. 2. Pauses. 3. Atrial fibrillation. 4. Coronary artery disease, atherosclerotic heart disease. BRIEF HISTORY: Mr. Josue Clark is a 53-year-old [place] male with past medical history significant for hypertension, obesity, obstructive sleep apnea, on CPAP, chronic atrial fibrillation on Eliquis, history of atrial fibrillation, ablation at [facility] some three years ago, presents to [facility] with sudden onset left-sided weakness, facial droop, and slurred speech. The patient came to the hospital with elevated blood pressures. CAT scan of the head showed acute hemorrhage into the right basal ganglia which at that time appeared stable in appearance measuring 1.8 cm x 1.3 cm. Repeat CAT scan did not show any significant change. The patient was admitted to the ICU where he had been monitored. He was seen in consultation by Dr. Adelfo Edwards. The patient had episodes of bradycardia with 3-to 5-second pauses during waking hours without being on rate-slowing agents. I have been called at that time in regards to findings of the case. The patient had been on chronic atrial fibrillation again now with full ventricular response, it was felt the patient would benefit from a permanent pacemaker for chronotropic support. The patient was agreeable and extensive conversations were had in regards to possible re-ablation and then eventually returning to sinus rhythm. The patient at this point has no plans of undergoing another atrial fibrillation ablation; therefore, the decision was made to put in a single lead permanent pacemaker for support. Informed consent was received about the procedure as well as conscious sedation of which he received 3 mg of Versed and 150 mcg of fentanyl in divided doses for sedation and comfort. In addition, the patient did receive Ancef for perioperative antibiotic prophylaxis. DESCRIPTION OF PROCEDURE: The patient was brought to room in a post-absorptive state. The left pectoral area was treated and prepped in a sterile fashion. A 2% lidocaine solution was injected into the surgical site. A 3.5 cm incision was made two fingerbreadths below the clavicle using blunt dissection and electrocautery, the fascial planes were dissected. The cephalic vein could not be identified. Therefore, a subclavian thickened fluoroscopic guidance was performed to obtain venous access to the left subclavian vein. An 0.35 guidewire was then inserted once access was achieved. A 7-[place] SafeSheath was then inserted again without difficulty. The right ventricular lead which is a Medtronic 50, 76, 58 cm lead, serial number [id number] was inserted via the sheath and manipulated into the right ventricular apex without difficulty. The parameters on the sleeve through the senior java programmer analyst analyzer and simulated through the device were as follows: R-wave measured 7.2 with sufficient injury current, threshold is 1.4 volts at 1.4 milliamps with a pulse width of 0.5 milliseconds. The patient's parameter changed post implant. The lead was tied down using 0 silk suture. Additional sutures were applied to check hemostasis. A subfascial pocket was made with blunt dissection which recorded the fascia. Pocket was inspected for bleeders of which there was none. A retention suture of 0 silk was used to prevent migration. The superficial fascia and skin layers were brought together using two layers of 2-0 Vicryl. The final layer was closed with Mastisol and Steri-Strips. The patient remained hemodynamically throughout the procedure. He was taken down to the room in hemodynamically stable condition. He is to go to the PACU. Once post anesthesia protocols completed, he will go back up to the telemetry unit. The patient may be put on rate-slowing antihypertensive agents. The patient has been hypertensive during the case. Thank you for allowing me to participate in the care of your patient. Please do not hesitate to call for any questions in regards to his care. Db Grimm MD
--- NOTE | 2018-12-24 10:47 | RAD ---
Date of service: 12/23/2018 HISTORY: post ppm implant COMPARISON: 12/20/2018 TECHNIQUE: 1 view obtained. FINDINGS: LUNGS: No active pulmonary disease. PLEURA: No significant pleural effusion identified, no pneumothorax apparent. CARDIOVASCULAR: No aortic atherosclerotic calcification present. Cardiomegaly probable minimal pulmonary venous congestion less now than before. Interval placement single lead pacemaker device position appears satisfactory per single frontal view. OSSEOUS STRUCTURES: No significant abnormalities. VISUALIZED UPPER ABDOMEN: Asymmetrical elevation the right hemidiaphragm-unchanged. Limited visualization of the epigastric region-the possibility of a bariatric banding or other intrinsic changes here cannot be excluded study is a limited in this regard. OTHER FINDINGS: None. IMPRESSION: Interval pacemaker insertion. Cardiomegaly-similar Other findings as above.
--- NOTE | 2018-12-24 11:49 | CARD ---
APPROVED REPORT Date of service: 12/23/2018 EKG Measurement Heart [id number] <Conclusion> Atrial fibrillation with demand paced ventricular complexes Left axis deviation Right bundle branch block Minimal voltage criteria for LVH, may be normal variant Inferior infarct, age undetermined Abnormal ECG
--- NOTE | 2018-12-24 13:54 | CP.PCM.PCO ---
Physician Communication Note - Physician Communication Note Physician Communication Note: bp control, salt restriction in diet and rehab for weakness.
--- NOTE | 2018-12-24 14:19 | PN ---
DATE: 12/24/2018 CARDIOLOGY FOLLOWUP SUBJECTIVE: The patient is status post pacemaker placement. Currently, the patient is in atrial fibrillation with intermittent ventricular pacer. PHYSICAL EXAMINATION: VITAL SIGNS: Blood pressure 165/105, heart rate in the 60s, atrial fibrillation. NECK: Negative JVD. LUNGS: Without rales. HEART: S1, S2. EXTREMITIES: Without edema. ASSESSMENT: 1. Status post atrial fibrillation with low heart rate, now protected with a pacemaker. 2. Accelerated hypertension. 3. Intracerebral bleed. 4. Hypertension. PLAN: Given these findings, we can safely increase his clonidine for better blood pressure control. No anticoagulation given his recent intracerebral bleed. We will discontinue telemetry today. We will enroll the patient in the pacemaker followup program. Adelfo Edwards MD
[2018-12-24 16:07] LABS: URINE CREATININE 58.2 mg/dL
[2018-12-24 16:39] LABS: URINE 24 HOUR TOTAL PROTEIN 20619 mg/24HR (42-225); URINE TOTAL VOLUME 2150 mL (800-1400)
--- NOTE | 2018-12-24 19:27 | PN ---
DATE: 12/24/2018 SUBJECTIVE: The patient is seen sitting in chair. He is awake, he is alert, he is comfortable. He has weakness on the left side of his body. He has slight facial droop. PHYSICAL EXAMINATION: GENERAL: Young male, sitting in chair. VITAL SIGNS: Blood pressure 160/82, heart rate 61, respiratory rate 20, temperature 97.5. HEENT: Normocephalic, atraumatic, positive pallor. NECK: Supple, no JVD. LUNGS: Bilateral equal air entry, bilateral equal expansion. CARDIAC: S1 and S2, regular rate and rhythm, no murmur, no rub. ABDOMEN: Obese, distended, soft, nontender, bowel sounds present. EXTREMITIES: No lower extremity edema. LABORATORY DATA: WBC 6.8, hemoglobin 11, hematocrit 35, platelets 283. Sodium 137, potassium 5.0, chloride 110, CO2 of 21, BUN 40, creatinine 2.9, glucose 86, calcium 8.8, albumin 3.0. Corrected calcium is 9.3. Iron saturation is 12, iron is 35, ferritin is 74. ESR is 57. The patient is status post pacemaker placement because of atrial fibrillation. CURRENT MEDICATIONS: Apresoline 50 mg t.i.d., Catapres 0.2 mg t.i.d., Lasix 40 mg, Lopressor 25 mg b.i.d., amlodipine 10 mg, oxycodone, PhosLo, Protonix, Rocaltrol. ASSESSMENT: 1. Advanced chronic kidney disease, stage III/IV, acute kidney injury? 2. Secondary hyperparathyroidism. 3. Hyperphosphatemia. 4. Status post intracerebral hemorrhage. 5. Status post hypertensive emergency. 6. Atrial fibrillation, status post pacemaker placement. 7. Anemia of chronic disease. PLAN: 1. Increase Lopressor to 50 mg b.i.d. 2. Continue other antihypertensives. 3. Currently not on MICHEL inhibitor or ARB because of unclear baseline. 4. The patient has nephrotic range proteinuria. Workup ordered, pending. With elevated ESR, need to definitely consider underlying GN. Chloe Diggs MD [facility] # [id number]
[2018-12-25] MEDS: Pantoprazole 40 mg EC Tab PO SCH (05:10)
[2018-12-25 05:36] VITALS: PULSE 60; O2SAT 98
[2018-12-25 07:04] LABS: HEMOGLOBIN 10.9 g/dL (14.0-18.0); MEAN CELL VOLUME 85.2 fl (80.0-105.0); MEAN CORPUSCULAR HEMOGLOBIN 27.7 pg (25.0-35.0); MEAN CORPUSCULAR HGB CONC 32.5 g/dl (31.0-37.0); MEAN PLATELET VOLUME 11.1 fl (7.0-11.0); RBC 3.93 10^6/uL (3.5-6.1); WHITE BLOOD COUNT 5.5 10^3/uL (4.5-11.0)
[2018-12-25 07:09] LABS: ALB/GLOB RATIO 0.9 (1.1-1.8); ALBUMIN 2.9 g/dL (3.0-4.8)
--- NOTE | 2018-12-25 08:56 | PN ---
DATE: 12/24/2018 SUBJECTIVE: He had a permanent pacemaker implanted yesterday by Cardiology. He needs to go to a [facility] for a acute rehab. [place] with a cerebral bleed with symptoms of a stroke with left-sided weakness, acute kidney injury, diabetes, and was doing much better. He did have pauses that is why I put the permanent pacemaker in place. PHYSICAL EXAMINATION: GENERAL: He slept well comfortable in bed. No deficits at this time that he knows of. He cannot move the left shoulder, he cannot wash over 3 days, he cannot move it for 2 weeks. VITAL SIGNS: He has a 97.9 temperature, 71 pulse, 175/86 blood pressure. The blood pressure was as high as 176/95, 20 respiratory rate 97% O2 sat on room air. HEENT: Head is atraumatic, normocephalic. HEART: Regular rate. LUNGS: Decreased breath sounds. ABDOMEN: Soft, obese. EXTREMITIES: No edema. He is moving them better, move his left hand better. He could do that when he came in. LABORATORY DATA: He has a 6.8 white count, 11.2 hemoglobin, 35.4 hematocrit with 283 platelets. He has a sodium 137, potassium 5, BUN is 40, creatinine 2.9 and that is coming down which is very good. It was higher when he came in. GFR is 23, sugar is 86, calcium is 8.8, iron is 35, low and he has been on iron. AST is 21, ALT is 21, alk phos 99, total protein 6.4. MEDICATIONS: Apresoline, Catapres, Lasix, Lopressor, Norvasc, Percocet, PhosLo, Protonix, Glucotrol. ASSESSMENT AND PLAN: He is being seen by Renal, Cardiology. He had a renal artery duplex, arteries are not adequately visualized kidneys. Kidneys are normal in size and symmetry. I will increase his clonidine to t.i.d. to help the blood pressure and I will add iron and hopefully he will continue to improve and when he get a bed at the acute rehab, we will discharge him as per social science analyst. Viktor Thomas DO MTDSantino
[2018-12-25] MEDS: Oxycodone/Acetaminophen 5/325 mg Tab PO PRN (09:04)
--- NOTE | 2018-12-25 11:33 | PN ---
DATE: 12/25/2018 SUBJECTIVE: The patient is without complaints. PHYSICAL EXAMINATION: VITAL SIGNS: Blood pressure varies from 157-176 systolic, heart rates in the 60s. NECK: Negative JVD. LUNGS: Without rales. HEART: S1, S2. EXTREMITIES: Without edema. LABORATORY DATA: Hemoglobin is 10.9, BUN and creatinine 43 and 2.9. IMPRESSION: 1. Intracerebral bleed. 2. Chronic atrial fibrillation with low heart rate. 3. Status post pacemaker placement. 4. Renal insufficiency. 5. Accelerated hypertension. Given these findings, we will increase his clonidine to 0.3 three times a day. The patient is waiting for transfer to subacute rehab. Adelfo Edwards MD
--- NOTE | 2018-12-25 11:50 | PN ---
DATE: 12/25/2018 SUBJECTIVE: He is resting comfortable in bed at this time. We are hoping to get him to acute rehab today when social worker school and case management can organize that with his insurance. MEDICATIONS: He is on Apresoline, Catapres, Feosol, Lasix, Lopressor, Norvasc, Percocet, PhosLo, Protonix, and Rocaltrol. PHYSICAL EXAMINATION: VITAL SIGNS: He has a 98 temperature, 68 pulse, 176/87 blood pressure, 20 respiratory rate, 98% O2 sat on room air. HEENT: Head is atraumatic and normocephalic. He did have a cerebral bleed. His difficulties when he came in really improved greatly. HEART: Regular rate. LUNGS: Decreased breath sounds. ABDOMEN: Soft, obese. EXTREMITIES: No edema. He can move all four extremities today, could not move when he came in which is wonderful. He still needs acute rehab. LABORATORY DATA: He had 5.5 white count, 10.9 hemoglobin, 33.5 hematocrit with 261 platelets. He has a 140 sodium, potassium 4.8, BUN is 43, creatinine 2.9 holding steady, GFR is 23, sugars 90, calcium 9, total bilirubin is 0.3, AST is 20, ALT is 19, alk phos 94, total protein 6.3. ASSESSMENT AND PLAN: He is being seen by Renal, Neurology, and Cardiology. Awaiting for discharge to acute rehabilitation. He also had an atrial fibrillation with low heart rate with a pacemaker in place, intracerebral bleed, accelerated hypertension. Adjustment of meds have been done by Cardiology. He is on 0.2 mg of clonidine now every 8 hours for hypertension. He needs to get out of bed to chair, physical therapy, acute rehab. As per social worker school and case management . Viktor Thomas DO MTDD
[2018-12-25 12:37] VITALS: RESP 18
[2018-12-25 17:18] VITALS: BP 148/85; TEMP 97.7
--- NOTE | 2018-12-25 20:37 | PN ---
DATE: 12/25/2018 SUBJECTIVE: The patient is currently seen lying comfortable in bed. He states that he is leaving for [facility] later today. His creatinine has remained stable at 2.9 and in all likelihood, he has chronic kidney disease which is what we suspected. The patient is willing to follow up with us post rehab for monitoring of his renal function. MEDICATIONS: Medication list reviewed. The patient is on hydralazine, Catapres, Feosol, Lasix, Lopressor, Norvasc, Percocet p.r.n., PhosLo, Protonix, and Rocaltrol. OBJECTIVE: INTAKE AND OUTPUT: Intake is 2000, output is 3101. VITAL SIGNS: Blood pressure is 148/85, temperature is 97.7. Respiratory rate is 18 with a pulse of 60. HEENT: Exam shows him to be normocephalic, atraumatic. The facial droop of the left face has all but resolved. Conjunctivae are pink. Sclerae nonicteric. NECK: Supple. No neck vein distention. CHEST: Clear to auscultation and percussion. No rales, rhonchi or wheezing. CARDIOVASCULAR: Shows a paced rhythm. MR/TR. No S3. No S4. No rub. ABDOMEN: Moderately obese. No distention. Soft, nontender. Bowel sounds are present. No rebound or guarding. EXTREMITIES: Show trace edema of his lower extremity. No cyanosis or clubbing. Diminished lower extremity pulses bilateral. NEUROLOGIC: Shows him to have a handgrip which is almost back to normal on the left side. He is able to move his left lower extremity without difficulty. LABORATORY DATA AND IMAGING: CBC: White blood cell count 5.5, hemoglobin 10.9 with a platelet count of 261,000. Chemistries show BUN of 43 with a creatinine of 2.9, unchanged. Potassium is 4.8, CO2 is 23. Glucose is 90. Calcium is 9. Last phosphorus level was 5.4 with a magnesium of 0.2. Liver enzymes are normal. Urinalysis showed 4+ protein, positive glucose, positive red blood cells. The patient did a 24-hour urine collection which showed a creatinine clearance of 29 mL per minute with greater than 20 g of protein in the urine 20,619. Renal artery Doppler study showed poorly visualized arteries. The kidneys were normal and symmetric in size with no masses, hydronephrosis or calcifications. His echocardiogram showed LVH, ejection fraction of 44% with mitral and tricuspid regurgitation. ASSESSMENT: Status post acute intracerebral hemorrhage with a right basal ganglia bleed. The patient's left facial droop and left-sided hemiparesis have significantly improved. History of longstanding diabetes mellitus. The patient remains on insulin. Hemoglobin A1c was excellent at 6.3%. History of hypertension, difficult to control for many years. In all likelihood, he has hypertensive nephrosclerosis. Of note, he is spilling 20 g of protein in the urine and will require an outpatient serological workup. History of atrial fibrillation with a slow heart rate. The patient is status post permanent pacemaker placement. He has mitral regurgitation and tricuspid regurgitation with an ejection fraction of 44%. History of peripheral vascular disease, stable. History of hyperphosphatemia with secondary hyperparathyroidism. PTH level is elevated at 213 and his vitamin D level is less than 12.8. The patient will start vitamin D supplements and remain on binder therapy. PLAN: 1. Unfortunately, we are not able to use MICHEL inhibitors, angiotensin receptor blockers in light of his advanced chronic kidney disease, stage 4. 2. Nephrotic syndrome. The patient will require an outpatient serological workup. 3. Secondary hyperparathyroidism. Continue phosphorus binders. Start vitamin D as noted above. 4. Reviewed 24-hour urine with the patient and explained to him the need for outpatient followup. 5. Transition the patient over to oral Lasix therapy for prevention of lower extremity edema. 6. Post his rehabilitation stay at [facility], the patient should make an appointment with us for further followup. Ross Vieyra MD
== END 2018-12-25 20:36 | DRG 40 ==
LOC: ED 11:17 → ERH 11:47 → ICU 15:08 → 2RNO 12-21 14:05
PROVIDERS: ADMIT Family Medicine; ATTEND Family Medicine
PROC: 5A09457 Assistance with Respiratory Ventilation, 24-96 Consecutive Hours, Continuous Positive Airway Pressure (ICD-10-PCS; 2018-12-21)
PROC: 0JH604Z Insertion of Pacemaker, Single Chamber into Chest Subcutaneous Tissue and Fascia, Open Approach (ICD-10-PCS; principal; 2018-12-23)
PROC: 02HK3JZ Insertion of Pacemaker Lead into Right Ventricle, Percutaneous Approach (ICD-10-PCS; 2018-12-23)
DX: I61.0 Nontraumatic intracerebral hemorrhage in hemisphere, subcortical (principal); G93.6 Cerebral edema; G81.94 Hemiplegia, unspecified affecting left nondominant side; N17.9 Acute kidney failure, unspecified; N25.81 Secondary hyperparathyroidism of renal origin; N18.4 Chronic kidney disease, stage 4 (severe); R00.1 Bradycardia, unspecified; I12.9 Hypertensive chronic kidney disease with stage 1 through stage 4 chronic kidney disease, or unspecified chronic kidney disease; I48.2 Chronic atrial fibrillation; R47.81 Slurred speech; R29.810 Facial weakness; I25.118 Atherosclerotic heart disease of native coronary artery with other forms of angina pectoris; G47.33 Obstructive sleep apnea (adult) (pediatric); E11.22 Type 2 diabetes mellitus with diabetic chronic kidney disease; E11.51 Type 2 diabetes mellitus with diabetic peripheral angiopathy without gangrene; D63.8 Anemia in other chronic diseases classified elsewhere; I08.1 Rheumatic disorders of both mitral and tricuspid valves; E78.5 Hyperlipidemia, unspecified; E66.9 Obesity, unspecified; Z68.34 Body mass index [BMI] 34.0-34.9, adult; G93.89 Other specified disorders of brain; Z79.899 Other long term (current) drug therapy; Z79.4 Long term (current) use of insulin; Z79.01 Long term (current) use of anticoagulants; Z95.5 Presence of coronary angioplasty implant and graft